=== PATIENT | male | born 1950 | race Caucasian/White ===

== ENCOUNTER → 2018-07-07 11:53 | Outpatient (CLI) | payer OTHER, SELFPAY ==
[2018-07-07 11:15] VITALS: BMI 29.1
--- NOTE | 2018-07-07 12:05 | RAD_ITS ---
STUDY: X-RAY CHEST REASON FOR EXAM: Male, 68 years old. Pre-op. TECHNIQUE: PA and lateral views of the chest. COMPARISON: None. FINDINGS: The lungs are clear and expanded. There is no demonstrated pleural abnormality. Normal size heart. Normal mediastinum and bindu. Normal visualized pulmonary arteries. There is minor atherosclerotic calcification of the aortic arch with tortuosity of the distal descending thoracic segment. There are multilevel degenerative changes of the visualized thoracic spine. Normal visualized ribs, clavicles, and shoulders. There is no demonstrated abnormality of the visualized soft tissue structures of the upper abdomen. RAD/Chest PA and Lateral IMPRESSION: No acute cardiopulmonary disease. Notable tortuosity of the distal descending thoracic aorta. Electronically Signed: Renard Bennett, at 12:54 EST , Service support ,
== END ==
PROVIDERS: Family Provider Family Medicine; PCP Family Medicine; Referring Provider Family Medicine; Visit Provider Family Medicine
DX: Z01.818 Encounter for other preprocedural examination (principal); M17.11 Unilateral primary osteoarthritis, right knee
CPT/HCPCS: 71046

== ENCOUNTER 2018-07-21 08:13 | Observation (INO) | payer SELFPAY ==
[2018-07-07 11:15] VITALS: BP 130/81; PULSE 56; RESP 16; TEMP 36.7; O2SAT 97; BMI 29.1
[2018-07-07 12:24] LABS: Absolute Lymphocyte Count 1.71 X10^3/ul (0.83-4.51); Absolute Neutrophil Count 2.3 X10^3/uL (2.0-7.7); Basophil# 0.03 X10^3/uL; Basophil% 0.6 % (0-1); Eosinophil# 0.13 X10^3/uL; Eosinophils% 2.6 % (0-5); Hematocrit 41.3 % (40-54); Hemoglobin 13.1 g/dl (13.0-16.5); Lymphocyte # 1.71 X10^3/ul (4.0); Lymphocyte % 34.8 % (19-41); Mean Corp Hgb Conc 31.7 g/gl (32-36); Mean Corpuscular Hgb 31.3 pg (27.0-32.0); Mean Corpuscular Volume 98.6 fL (80-94); Mean Platelet Vol. 10.1 fl (6.2-12.0); Monocyte# 0.75 X10^3/uL; Monocyte% 15.3 % (0-10); Neutrophil # 2.28 X10^3/uL (2.7-7.7); Neutrophil % 46.5 % (47-70); Platelet Count 263 K/mm3 (150-450); RBC Distribution Width CV 13.6 % (11.6-14.6); Red Blood Count 4.19 M/mm3 (4.6-6.2); White Blood Count 4.9 K/mm3 (4.4-11.0)
[2018-07-07 12:28] LABS: POSITIVE COUNT NO; POSITIVE DIFFERENTIAL NO; POSITIVE MORPHOLOGY NO
[2018-07-07 13:15] LABS: ALB/GLOB Ratio 1.1 RATIO (0.9-2.4); AST(SGOT) 17 U/L (15-37); Alanine Aminotransfer ALT/SGPT 28 U/L (16-61); Alkaline Phosphatase 63 U/L (45-117); Anion Gap 6 (5-15); BUN 18 mg/dL (7-18); BUN/Creat Ratio 19.6 RATIO (10-20); Calcium,Total 9.4 mg/dL (8.5-10.1); Chloride 106 mmol/L (98-107); Creatinine, Serum 0.92 mg/dL (0.70-1.30); EST Glomerular Filtration Rate 87 mL/min (>60); Est Glom Filt Rate - Afr Amer 105 mL/min (>60); Estimated Creatinine Clearance 67.42 ml/min; Globulin 3.8 g/dL (2.2-4.2); Glucose 86 mg/dL (74-106); Protein, Total 7.8 g/dL (6.4-8.2); Sodium Level 141 mmol/L (136-145)
--- NOTE | 2018-07-07 20:37 | PCM.HP.BLA ---
History and Physical DATE OF SURGERY: 07/21/2018 SCHEDULED PROCEDURE: right total knee arthroplasty HISTORY OF PRESENT ILLNESS: This is a 68-year-old male who has been having ongoing pain for approximately 1 year with his right knee. Patient states with activity the pain can reach as high as an 8/10. His pain has been sharp and sore. He has increased pain going up and down stairs, walking, and when he is on his feet for extended periods. Patient complains of grinding and catching in the right knee. He has difficult time with normal work activities. Pain is located over the medial joint line. Patient has tried conservative measures consisting of rest, heat, elevation with no relief in symptoms. Patient has tried home exercises with minimal relief. Patient has tried transition of care specialist with no relief in symptoms. Patient has tried oral nonsteroidal anti-inflammatories. Medications have not been significantly helpful. Patient has had previous surgery back in 1971 for removal of torn cartilage. Patient has medical history pertinent for hypertension. He currently denies any chest pain, shortness of breath, fevers chills, or recent infections. After failing conservative measures and discussing treatment options with Dr. Issac Ley, the patient would like to proceed with a right total knee arthroplasty. We are obtaining surgical clearance from patient's primary care physician. REVIEW OF SYSTEMS: ROS: Const: Denies change in appetite, fever and weight change. CV: Denies chest pain, heart murmur and irregular heartbeat. Resp: Denies cough, pneumonia, shortness of breath, tuberculosis and wheezing. GI: Denies constipation, diarrhea, heartburn, nausea, rectal itching, bloody stools and vomiting. : Denies incontinence. Musculo: Denies leg swelling, pain, trouble walking and weakness. Skin: Denies Raynaud's, history of shingles and tattoo. Neuro: Denies ambulatory dysfunction, dizziness, numbness/tingling and tremor. Psych: Denies anxiety, insomnia and stress. Emerson/Lymph: Denies anemia, bleeding/bruising tendency and past transfusion. Reviewed, no changes. PAST MEDICAL HISTORY: Advance Care Plan: No Advance Directives Effective Date: 06/10/2018 PMH: Medical Problems: Hard of Hearing, High Blood Pressure Accidents: Fracture - (1985) LT ARM Surgical Hx: Appendectomy, Hernia Repair Anesthesia Complications: None Assistive Devices: Dentures, Glasses, Hearing Aid Reviewed and updated. SOCIAL HISTORY: SH: Marital: .Occupation: [employer].Work Status: Currently Working.Hand Dominance: Right-handed. Personal Habits: Cigarette Use: Never Smoked Cigarettes.Smokeless Tobacco: Never Used Smokeless Tobacco.E-Cigarette Use: Never used.Alcohol: Denies use.Drug Use: Denies Use.Enjoy Exercising: Daily. Reviewed, no changes. VITALS: Ht: 66.5 Wt: 184lb Wt k.462 BMI: 29.3 BP: 117/79 Pulse: 69 Resp: 18 T: 97.5 T: 36.4C ALLERGIES: No Known Drug Allergy MEDICATIONS: Lisinopril 20 mg 1 tab PO daily, Hydrochlorothiazide 25 mg 1 tab PO daily PRE-OP EXAM: General appearance:NORMAL Other: Eyes: Conjunctivae and lids: NORMAL Pupils: ERR Ears, Nose, Mouth, and Throat: NORMAL Other: Inspection of lips, teeth and gums: NORMAL Other: Neck: Examination of neck: no masses noted. Respiratory: Assessment of respiratory effort: NORMAL Other: Auscultation of lungs: clear to auscultation no wheezes, rhonchi or rales. Cardiovascular: Auscultation of heart: regular rate and rhythm, no murmurs, gallops or rubs. Gastrointestinal: Exam of abdomen: soft, nontender, nondistended bowel sounds present. PHYSICAL EXAMINATION: Patient walks with an antalgic gait. Previous incision over the right knee well-healed without erythema or signs of infection. There is moderate effusion. Tenderness to palpation of the medial joint line. Range of motion right knee: Lacks 20 of full extension to 120 flexion with crepitus. Partially correctable varus alignment. Sensation intact to light touch. Neurovascularly intact. IMAGING STUDIES: X-rays of the right knee reveal varus alignment with medial joint space narrowing, subchondral sclerosis, osteophyte formation consistent with severe tricompartmental osteoarthritis. IMPRESSION: 1. Severe right knee osteoarthritis 2. Hypertension PLAN: Dr. Issac Ley did discuss and review with the patient all treatment options including surgical versus nonsurgical options. Patient does wish to proceed with the above-stated procedure. Potential risks, benefits, and complications of the procedure were discussed in detail including but not limited to , infection, nerve and blood vessel damage, persistent pain, numbness, tingling, paresthesias, blood clot, pulmonary embolism, and requirement for possible further surgery. The patient expressed full understanding and has no further questions for the doctor. Patient does agree to proceed with the above-stated procedure and has signed the surgery consent form. This dictation was created using voice recognition software. Phonetic and/or grammatical errors may exist.. ___ I have re-examined the patient. There are no clinical changes since date of exam. ___ See progress notes for changes. ___ Dictated on admission Date: Time: Signature:
[2018-07-21] VITALS (14 sets, daily range): BP systolic 91–145; BP diastolic 56–86; PULSE 56–80; RESP 14–18; TEMP 36.2–36.9; O2SAT 96–100; BMI 28.6
[2018-07-21] MEDS: Celecoxib 200 MG Capsule 400 MG PO (09:12)
[2018-07-21] MEDS: Acetaminophen 500 MG Tablet 1000 MG PO ×2 (09:12→20:58)
[2018-07-21] MEDS: Lactated Ringers 1,000 ML 999 ML IV ×2 (09:13→11:30)
[2018-07-21] MEDS: oxyCODONE HCl Cr 10 MG Tablet PO (09:14)
[2018-07-21] MEDS: Cefazolin 2 GM in 0.9% Normal Saline 100 ML IV (09:59)
--- NOTE | 2018-07-21 11:29 | RAD_ITS ---
STUDY: X-RAY - RIGHT KNEE REASON FOR EXAM: Male, 68 years old. Total knee replacement. TECHNIQUE: 2 view(s) of the knee. COMPARISON: None. FINDINGS: Normal visualized distal femur. Normal visualized proximal tibia and fibula. Normal proximal tibiofibular articulation. The patient is status post total knee replacement. There is good alignment. Postoperative soft tissue changes. RAD/Knee 1 or 2 Views IMPRESSION: Status post total knee replacement. Postoperative soft tissue changes. Electronically Signed: Ash Horner, at 12:39 EDT , Service support ,
--- NOTE | 2018-07-21 11:31 | PCM.OPRPT ---
Report of Operation Date of Procedure: 07/21/18 Pre-Operative Diagnosis: Right knee primary osteoarthritis Post-Operative Diagnosis: Right knee primary osteoarthritis Surgery/Procedure Performed:: Right total knee replacement Description of Surgical Findings:: Stable knee with good patella tracking fabrics and material cutter: Kely Gracia Type of Anesthesia:: Spinal Anesthesiologist: Ramiro Rodriguez Special Medications: 2 g Ancef, 1 g TXA at incision, 1 g TXA closure, 10 mg Decadron, joint cocktail (5 mg Duramorph, 30 mL of 0.5% Ropivicaine, 1000 units of epinephrine, 30 mg of Toradol) Specimen's removed: Bony cuts Estimated Blood Loss (mL): 50 Fluids Replaced: 1400 mL crystalloid Description of Procedure: Implants used: 1. [place] size 5 press-fit triathlon cruciate retaining distal femoral component 2. [place] size 6 press-fit tibial baseplate 3. [place] X3 11 mm CS polyethylene 4. [place] X3 32 mm asymmetric patella Brief history operative indications: 68-year-old m with history of Right knee osteoarthritis with radiographic findings with loss of joint space, osteophyte formation and subchondral sclerosis. Failed conservative measures as mentioned in the H&P. Discussion of total knee arthroplasty as well as risk and benefits were discussed the patient including but not limited to blood loss, DVTs, PEs, neurovascular damage, general risk of anesthesia including loss of life, and stiffness or instability were discussed with patient. Patient demonstrated understanding and was able to sign informed consent. Procedure: On the date of procedure patient's right lower extremity was marked in the preoperative area. The patient was then taken back to the operating room where the patient was placed on the table in the supine position. All bony prominences were identified a well-padded. Anesthesia assumed control of the C-spine and airway and remained controlled throughout the remainder of the procedure. A tourniquet was placed on the right upper thigh and the leg was prepped in a sterile fashion. The surgeon then scrubbed at this time .Upon reentering the room right lower extremity was draped in a standard orthopedic fashion. A timeout was then called and everyone agreed upon the side, the site, the procedure to be performed, patient's identity and antibiotics given. Esmarch bandage was used to exsanguinate the extremity and the tourniquet was placed up to 250 mmHg with the knee in flexion. A midline skin incision was made and sharp dissection was taken down through skin subcutaneous tissue and fat. The standard medial parapatellar incision was made and the patella was subluxed laterally. The standard deep MCL release was done and the fat pad was resected. Next our attention was directed to the femur. Navigation pins were placed, navigation was registered. The distal femoral cutting block was pinned into place and 10 mm of distal femur resection was completed. The distal femoral cut was verified with navigation. The knee was then placed in deep flexion in the standard [employer] sizing guide was used to place the femoral component in 4? external rotation based on the posterior condyles. A size 5 4-in-1 cutting block was selected and pinned into place. The anterior cut was then made and checked for notching. The subsequent anterior chamfer cuts, posterior condylar cuts and posterior chamfer cuts were made while ensuring the MCL and LCL were protected. Our attention was then turned to the tibia where the [employer] tibial cutting guide was used to make the appropriate tibial cut 90 degrees from the mechanical axis. Navigation was then used to verify the cut. A size 6 tibial base plate was selected. the knee was flexed to 90 degrees and the soft tissues and posterior osteophytes were removed from the joint. 40 cc of the periarticular injection was injected into the posterior medial corner of the joint. The appropriate trials were then placed on the femur and tibia. A trial polyethylene was trialed to ensure proper balancing and stability of the knee. Patella tracking, was then verified and corrected appropriately as needed. The appropriate tibial internal rotation was then marked with a bovie. Our attention was then directed to the patella. The patella was everted and a flat resection was made. The lug holes were drilled and the patella trial was placed. Patellar tracking was checked and deemed appropriate. Once we were happy lug holes were drilled for the femur and trial components were removed. Cement was mixed at this time and the tourniquet was let down the tibia was subluxed and pinned into place and the keel was punched and the canal was reamed. Final components were verified and opened, and cement was mixed in a vacuum. [place] Simplex cement was used. The wound was copiously irrigated with normal saline. When the cement was ready the press-fit components were impacted into place starting with the tibia, femur and finally the patella cemented into place. The trial poly component was placed and the knee was placed in full extension. All excess cement was removed in the process. Once the cement had cured the tracking, alignment and balance were verified and a size 11 mm polyethylene component was placed. Once the final components were placed the wound was copiously irrigated with normal saline solution and the periarticular injection was given. The wound was closed in a layer anderson fashion using #1 vicryl interrupted sutures for the arthrotomy, 2-0 interrupted Vicryl suture for the subcuticular layer and mariely for final skin closure. A sterile compressive dressing was then placed. The patient was then awakened from anesthesia, transferred to the [place] and transferred to the PACU for recovery. Post op plan DVT ppx: ASA 81mg, thigh high compression stockings Follow up: in office in 2 weeks for wound check PT: to start POD #0 at hospital, outpatient PT should be arranged. Grafts/Implants Used: Press-fit cruciate retaining total knee - Complications None - Admit VTE Documentation VTE Present on Admission: No VTE Mechan Device Prophylaxis: SCD's, Thigh High MASHA Hose VTE Pharm Prophylaxis ordered?: Yes
--- NOTE | 2018-07-21 11:34 | OP.PCM_ITS ---
Report of Operation Date of Procedure: 07/21/18 Pre-Operative Diagnosis: Right knee primary osteoarthritis Post-Operative Diagnosis: Right knee primary osteoarthritis Surgery/Procedure Performed:: Right total knee replacement Description of Surgical Findings:: Stable knee with good patella tracking waiter/waitress club: Kely Gracia Type of Anesthesia:: Spinal Anesthesiologist: Ramiro Rodriguez Special Medications: 2 g Ancef, 1 g TXA at incision, 1 g TXA closure, 10 mg Decadron, joint cocktail (5 mg Duramorph, 30 mL of 0.5% Ropivicaine, 1000 units of epinephrine, 30 mg of Toradol) Specimen's removed: Bony cuts Estimated Blood Loss (mL): 50 Fluids Replaced: 1400 mL crystalloid Description of Procedure: Implants used: 1. Miguel Ángel size 5 press-fit triathlon cruciate retaining distal femoral component 2. [place] size 6 press-fit tibial baseplate 3. [place] X3 11 mm CS polyethylene 4. Miguel Ángel X3 32 mm asymmetric patella Brief history operative indications: 68-year-old m with history of Right knee osteoarthritis with radiographic findings with loss of joint space, osteophyte formation and subchondral sclerosis. Failed conservative measures as mentioned in the H&P. Discussion of total knee arthroplasty as well as risk and benefits were discussed the patient including but not limited to blood loss, DVTs, PEs, neurovascular damage, general risk of anesthesia including loss of life, and stiffness or instability were discussed with patient. Patient demonstrated understanding and was able to sign informed consent. Procedure: On the date of procedure patient's right lower extremity was marked in the preoperative area. The patient was then taken back to the operating room where the patient was placed on the table in the supine position. All bony prominences were identified a well-padded. Anesthesia assumed control of the C-spine and airway and remained controlled throughout the remainder of the procedure. A tourniquet was placed on the right upper thigh and the leg was prepped in a sterile fashion. The surgeon then scrubbed at this time .Upon reentering the room right lower extremity was draped in a standard orthopedic fashion. A timeout was then called and everyone agreed upon the side, the site, the procedure to be performed, patient's identity and antibiotics given. Esmarch bandage was used to exsanguinate the extremity and the tourniquet was placed up to 250 mmHg with the knee in flexion. A midline skin incision was made and sharp dissection was taken down through skin subcutaneous tissue and fat. The standard medial parapatellar incision was made and the patella was subluxed laterally. The standard deep MCL release was done and the fat pad was resected. Next our attention was directed to the femur. Navigation pins were placed, navigation was registered. The distal femoral cutting block was pinned into place and 10 mm of distal femur resection was completed. The distal femoral cut was verified with navigation. The knee was then placed in deep flexion in the standard [employer] sizing guide was used to place the femoral component in 4? external rotation based on the posterior condyles. A size 5 4-in-1 cutting block was selected and pinned into place. The anterior cut was then made and checked for notching. The subsequent anterior chamfer cuts, posterior condylar cuts and posterior chamfer cuts were made while ensuring the MCL and LCL were protected. Our attention was then turned to the tibia where the [employer] tibial cutting guide was used to make the appropriate tibial cut 90 degrees from the mechanical axis. Navigation was then used to verify the cut. A size 6 tibial base plate was selected. the knee was flexed to 90 degrees and the soft tissues and posterior osteophytes were removed from the joint. 40 cc of the periarticular injection was injected into the posterior medial corner of the joint. The appropriate trials were then placed on the femur and tibia. A trial polyethylene was trialed to ensure proper balancing and stability of the knee. Patella tracking, was then verified and corrected appropriately as needed. The appropriate tibial internal rotation was then marked with a bovie. Our attention was then directed to the patella. The patella was everted and a flat resection was made. The lug holes were drilled and the patella trial was placed. Patellar tracking was checked and deemed appropriate. Once we were happy lug holes were drilled for the femur and trial components were removed. Cement was mixed at this time and the tourniquet was let down the tibia was subluxed and pinned into place and the keel was punched and the canal was reamed. Final components were verified and opened, and cement was mixed in a vacuum. [place] Simplex cement was used. The wound was copiously irrigated with normal saline. When the cement was ready the press-fit components were impacted into place starting with the tibia, femur and finally the patella cemented into place. The trial poly component was placed and the knee was placed in full extension. All excess cement was removed in the process. Once the cement had cured the tracking, alignment and balance were verified and a size 11 mm polyethylene component was placed. Once the final components were placed the wound was copiously irrigated with normal saline solution and the periarticular injection was given. The wound was closed in a layer anderson fashion using #1 vicryl interrupted sutures for the arthrotomy, 2-0 interrupted Vicryl suture for the subcuticular layer and mariely for final skin closure. A sterile compressive dressing was then placed. The patient was then awakened from anesthesia, transferred to the [place] and transferred to the PACU for recovery. Post op plan DVT ppx: ASA 81mg, thigh high compression stockings Follow up: in office in 2 weeks for wound check PT: to start POD #0 at hospital, outpatient PT should be arranged. Grafts/Implants Used: Press-fit cruciate retaining total knee - Complications None - Admit VTE Documentation VTE Present on Admission: No VTE Mechan Device Prophylaxis: SCD's, Thigh High MASHA Hose VTE Pharm Prophylaxis ordered?: Yes
[2018-07-21] MEDS: Scopolamine 1mg/72hr Patch 1 PATCH TD (11:59)
--- NOTE | 2018-07-21 16:56 | PCM.PN.HOSP ---
Subjective: There is a 68-year-old pleasant gentleman with no significant past medical history except hypertension on medication was admitted after elective right TKR for advanced right knee degenerative joint disease. Patient rate pain in the right knee has 2 x 10. Right knee on ice pack. Denies chest pain, shortness of breath, cough or flulike symptoms. No abdominal pain. Patient has not urinated after surgery. Preop EKG on 07/18/2018 is normal sinus rhythm with prolonged QTC. QTC 532 ms. Past medical history Hypertension Patient denies chronic heart disease including DE/CHF or arrhythmia. No COPD/emphysema or smoking history or other chronic lung disease. Vitals/I&O's: Vital Signs Temp Pulse Resp BP Pulse Ox 97.4 F L 64 18 145/84 H 96 07/21/18 16:18 07/21/18 16:18 07/21/18 16:18 07/21/18 16:18 07/21/18 16:18 Oxygen Delivery Method Room Air Weight: 180 lb Body Mass Index (BMI) 28.6 Intake and Output for Last 24 Hours 07/19/18 07/20/18 07/21/18 23:59 23:59 23:59 Intake Total 2300 / 2300 Balance 2300 / 2300 General: Alert, Oriented x3, Cooperative HEENT: Atraumatic, PERRLA, EOMI, Normocephalic Oral: Dry Mucosa Neck: Supple, No JVD, Negative Carotid Bruits Lungs: Clear to auscultation, Normal air movement, No rhonchi, No wheeze, No rales Cardiovascular: Regular rate, Regular Rhythm, Normal S1, Normal S2, No murmurs Abdomen: Bowel Sounds Present, Soft, Non Tender, Non-Distended Extremities: Capillary Refill Less than 3 Seconds, Edema - Right knee TKR postop. Under ice pack. Knee stocking present. Skin: No rashes, No breakdown Musculoskeletal: Arthritic Changes, Tenderness - Mild expected postop tenderness in the right knee Lymphatic: No Cervical, Supraclavicular, or Inguinal Adenopathy Neurological: Cranial nerves II-XII grossly intact, Deep Tendon Reflexes 2+/4 and Symmetrical, Neuro grossly intact Psych/Mental Status: Normal Affect, Appropriate Current Medications Acetaminophen (Tylenol) 1,000 mg PO Q8 [facility] Aspirin (Aspirin, Baby) 81 mg PO BIDCM [facility] Famotidine (Pepcid) 20 mg PO DAILY [facility] Hydrochlorothiazide (Hctz) 25 mg PO DAILY [facility] Cefazolin Sodium () 1 gm in 50 mls @ 150 mls/hr IV Q8H [facility] Stop: 07/22/18 02:19 Lactated Ringer's () 1,000 mls @ 125 mls/hr IV .Q8H [facility] Last Admin: 07/21/18 16:08 Dose: Not Given Ketorolac Tromethamine (Toradol) 15 mg IV Q6H PRN PRN PRN Reason: MILD-MOD PAIN (1-5/10) Lisinopril (Zestril) 20 mg PO QHS [facility] Meloxicam (Mobic) 7.5 mg PO BID [facility] Morphine Sulfate () 2 - 4 mg IV Q2H PRN PRN PRN Reason: SEVERE PAIN (6-10/10) Morphine Sulfate () 2 - 4 mg IV Q2H PRN PRN PRN Reason: SEVERE PAIN (6-10/10) [facility]it[facility]) [facility] Nutritional Formula (Lactose Free) (Ensure Clear) 120 ml PO TIDCM [facility] Ondansetron HCl (Zofran) 4 mg IV Q8H PRN PRN PRN Reason: NAUSEA Oxycodone HCl (Oxyir) 5 - 10 mg PO Q4H PRN PRN PRN Reason: MOD-SEVERE PAIN (4-10/10) Promethazine HCl (Phenergan) 12.5 mg IM Q6H PRN PRN; Protocol PRN Reason: NAUSEA/VOMITING Senna/Docusate Sodium (Senokot-S, Kiarra-Colace) 2 tablet PO BID [facility] Sodium Chloride () 5 - 15 ml IV UD PRN PRN Reason: SALINE FLUSH Medical Necessity - Tobacco Use Smoking Status: Never smoker Tobacco Use: Non-smoker Assessment/Plan There is a 68-year-old pleasant gentleman with no significant past medical history except hypertension on medication was admitted after elective right TKR for advanced right knee degenerative joint disease. Patient rate pain in the right knee has 2 x 10. Right knee on ice pack. Denies chest pain, shortness of breath, cough or flulike symptoms. No abdominal pain. Patient has not urinated after surgery. Preop EKG on 07/18/2018 is normal sinus rhythm with prolonged QTC. QTC 532 ms. 1. Severe right knee osteoarthritis status post TKR: Postop day 0. Encourage incentive spirometry. Watch for urine output for next 3 hours. If no spontaneous voiding, bladder scan and straight cath. CBC, BMP tomorrow morning. 2. Hypertension: Blood pressure is reasonably controlled 130/77, 126/76. Home medication continued. Bowel and bladder care: On senna S. Rest as mentioned above 3. DVT prophylaxis: As per orthopedic surgeon. Patient is on aspirin 81 mg twice daily. Code Visit Inpatient E&M: 07609 Init Hosp L2
--- NOTE | 2018-07-21 17:00 | PN_ITS ---
Subjective: There is a 68-year-old pleasant gentleman with no significant past medical history except hypertension on medication was admitted after elective right TKR for advanced right knee degenerative joint disease. Patient rate pain in the right knee has 2 x 10. Right knee on ice pack. Denies chest pain, shortness of breath, cough or flulike symptoms. No abdominal pain. Patient has not urinated after surgery. Preop EKG on 07/18/2018 is normal sinus rhythm with prolonged QTC. QTC 532 ms. Past medical history Hypertension Patient denies chronic heart disease including VT/CHF or arrhythmia. No COPD/emphysema or smoking history or other chronic lung disease. Vitals/I&O's: Vital Signs Temp Pulse Resp BP Pulse Ox 97.4 F L 64 18 145/84 H 96 07/21/18 16:18 07/21/18 16:18 07/21/18 16:18 07/21/18 16:18 07/21/18 16:18 Oxygen Delivery Method Room Air Weight: 180 lb Body Mass Index (BMI) 28.6 Intake and Output for Last 24 Hours 07/19/18 07/20/18 07/21/18 23:59 23:59 23:59 Intake Total 2300 / 2300 Balance 2300 / 2300 General: Alert, Oriented x3, Cooperative HEENT: Atraumatic, PERRLA, EOMI, Normocephalic Oral: Dry Mucosa Neck: Supple, No JVD, Negative Carotid Bruits Lungs: Clear to auscultation, Normal air movement, No rhonchi, No wheeze, No rales Cardiovascular: Regular rate, Regular Rhythm, Normal S1, Normal S2, No murmurs Abdomen: Bowel Sounds Present, Soft, Non Tender, Non-Distended Extremities: Capillary Refill Less than 3 Seconds, Edema - Right knee TKR postop. Under ice pack. Knee stocking present. Skin: No rashes, No breakdown Musculoskeletal: Arthritic Changes, Tenderness - Mild expected postop tenderness in the right knee Lymphatic: No Cervical, Supraclavicular, or Inguinal Adenopathy Neurological: Cranial nerves II-XII grossly intact, Deep Tendon Reflexes 2+/4 and Symmetrical, Neuro grossly intact Psych/Mental Status: Normal Affect, Appropriate Current Medications Acetaminophen (Tylenol) 1,000 mg PO Q8 KARINA Aspirin (Aspirin, Baby) 81 mg PO BIDCM KARINA Famotidine (Pepcid) 20 mg PO DAILY [facility] Hydrochlorothiazide (Hctz) 25 mg PO DAILY [facility] Cefazolin Sodium () 1 gm in 50 mls @ 150 mls/hr IV Q8H [facility] Stop: 07/22/18 02:19 Lactated Ringer's () 1,000 mls @ 125 mls/hr IV .Q8H [facility] Last Admin: 07/21/18 16:08 Dose: Not Given Ketorolac Tromethamine (Toradol) 15 mg IV Q6H PRN PRN PRN Reason: MILD-MOD PAIN (1-5/10) Lisinopril (Zestril) 20 mg PO QHS [facility] Meloxicam (Mobic) 7.5 mg PO BID [facility] Morphine Sulfate () 2 - 4 mg IV Q2H PRN PRN PRN Reason: SEVERE PAIN (6-10/10) Morphine Sulfate () 2 - 4 mg IV Q2H PRN PRN PRN Reason: SEVERE PAIN (6-10/10) [facility]) [facility] Nutritional Formula (Lactose Free) (Ensure Clear) 120 ml PO TIDCM [facility] Ondansetron HCl (Zofran) 4 mg IV Q8H PRN PRN PRN Reason: NAUSEA Oxycodone HCl (Oxyir) 5 - 10 mg PO Q4H PRN PRN PRN Reason: MOD-SEVERE PAIN (4-10/10) Promethazine HCl (Phenergan) 12.5 mg IM Q6H PRN PRN; Protocol PRN Reason: NAUSEA/VOMITING Senna/Docusate Sodium (Senokot-S, Kiarra-Colace) 2 tablet PO BID [facility] Sodium Chloride () 5 - 15 ml IV UD PRN PRN Reason: SALINE FLUSH Medical Necessity - Tobacco Use Smoking Status: Never smoker Tobacco Use: Non-smoker Assessment/Plan There is a 68-year-old pleasant gentleman with no significant past medical history except hypertension on medication was admitted after elective right TKR for advanced right knee degenerative joint disease. Patient rate pain in the right knee has 2 x 10. Right knee on ice pack. Denies chest pain, shortness of breath, cough or flulike symptoms. No abdominal pain. Patient has not urinated after surgery. Preop EKG on 07/18/2018 is normal sinus rhythm with prolonged QTC. QTC 532 ms. 1. Severe right knee osteoarthritis status post TKR: Postop day 0. Encourage incentive spirometry. Watch for urine output for next 3 hours. If no s pontaneous voiding, bladder scan and straight cath. CBC, BMP tomorrow morning. 2. Hypertension: Blood pressure is reasonably controlled 130/77, 126/76. Home medication continued. Bowel and bladder care: On senna S. Rest as mentioned above 3. DVT prophylaxis: As per orthopedic surgeon. Patient is on aspirin 81 mg twice daily. Code Visit Inpatient E&M: 18583 Init Hosp L2
[2018-07-21] MEDS: Ensure Clear 120 ML Liquid PO (17:33)
[2018-07-21] MEDS: Cefazolin 1 GM/50 ML BAG IV (17:33)
[2018-07-21] MEDS: Lactated Ringers 1,000 ML 125 ML IV (17:34)
[2018-07-21] MEDS: Meloxicam 7.5 MG Tablet PO (20:58)
[2018-07-21] MEDS: Senna/Docusate Sodium 1 Tablet 2 TABLET PO (20:58)
[2018-07-21] MEDS: Lisinopril 20 MG Tablet PO (20:58)
[2018-07-21] MEDS: Aspirin 81 MG TAB.CHEW PO (20:59)
--- NOTE | 2018-07-21 21:00 | NURSING ---
Pt voided 20cc c/o feeling full. Pt straight cath for 900cc of clear yellow urine.
[2018-07-22] MEDS: Cefazolin 1 GM/50 ML BAG IV (01:56)
[2018-07-22 02:10] VITALS: BP 94/60; PULSE 65; RESP 17; TEMP 36.7; O2SAT 95
[2018-07-22] MEDS: Acetaminophen 500 MG Tablet 1000 MG PO ×2 (05:38→14:25)
[2018-07-22 06:14] LABS: Hematocrit 34.8 % (40-54); Hemoglobin 11.4 g/dl (13.0-16.5); Mean Corp Hgb Conc 32.8 g/gl (32-36); Mean Corpuscular Hgb 31.8 pg (27.0-32.0); Mean Corpuscular Volume 97.2 fL (80-94); Mean Platelet Vol. 10.1 fl (6.2-12.0); Platelet Count 217 K/mm3 (150-450); RBC Distribution Width SD 43.9 fl (35.1-43.9); Red Blood Count 3.58 M/mm3 (4.6-6.2); White Blood Count 13.5 K/mm3 (4.4-11.0)
[2018-07-22 06:18] LABS: Anion Gap 8 (5-15); BUN 19 mg/dL (7-18); BUN/Creat Ratio 21.1 RATIO (10-20); Calcium,Total 8.6 mg/dL (8.5-10.1); Chloride 106 mmol/L (98-107); EST Glomerular Filtration Rate 89 mL/min (>60); Est Glom Filt Rate - Afr Amer 107 mL/min (>60); Estimated Creatinine Clearance 68.92 ml/min; Glucose 127 mg/dL (74-106); Potassium 3.8 mmol/L (3.5-5.1); Sodium Level 140 mmol/L (136-145)
[2018-07-22 06:20] LABS: Scan Indicated on CBC? Y/N NO
[2018-07-22 07:48] VITALS: BP 112/62; PULSE 55; RESP 16; TEMP 36.8; O2SAT 94
[2018-07-22] MEDS: Senna/Docusate Sodium 1 Tablet 2 TABLET PO (07:57)
[2018-07-22] MEDS: Famotidine 20 MG Tablet PO (07:57)
[2018-07-22] MEDS: Multivitamins,Therapeutic Tablet 1 TABLET PO (07:57)
[2018-07-22] MEDS: Aspirin 81 MG TAB.CHEW PO (07:57)
[2018-07-22] MEDS: Meloxicam 7.5 MG Tablet PO (07:58)
[2018-07-22] MEDS: hydroCHLOROthiazide 25 MG Tablet PO (07:58)
--- NOTE | 2018-07-22 09:07 | PCM.PN.ORT ---
Subjective: The patient was sitting in bedside chair upon examination. Patient denies any chest pain, shortness of breath, dizziness, lightheadedness, nausea or vomiting, or calf pain. Pain is controlled on medications. No adverse overnight events. Overall patient is doing well. He has been up walking around and states the pain is well controlled. Plan is for him to go home today. Objective: Vital signs stable and afebrile. Patient is able to plantarflex and dorsiflex actively. Sensation is intact to light touch to saphenous, sural, superficial and deep peroneal, and tibial distribution. Dressing is clean dry and intact. Negative Homans bilaterally, negative signs and symptoms of DVT. - Physical Exam General: Alert, Oriented x3, Cooperative, No apparent distress Vital Signs Temp Pulse Resp BP Pulse Ox 98.2 F 55 L 16 112/62 94 07/22/18 07:48 07/22/18 07:48 07/22/18 07:48 07/22/18 07:48 07/22/18 07:48 Oxygen Delivery Method Room Air Weight: 81.647 kg Body Mass Index (BMI) 28.6 Intake and Output for Last 24 Hours 07/20/18 07/21/18 07/22/18 23:59 23:59 23:59 Intake Total 3958 / 3958 883 / 883 Output Total 920 / 920 750 / 750 Balance 3038 / 3038 133 / 133 Laboratory Tests Past 24 Hrs 07/22/18 07/22/18 05:38 05:38 WBC 13.5 H RBC 3.58 L Hgb 11.4 L Hct 34.8 L MCV 97.2 H MCH 31.8 MCHC 32.8 RDW 13.0 RDW Differential 43.9 Plt Count 217 MPV 10.1 Sodium 140 Potassium 3.8 Chloride 106 Carbon Dioxide 26.0 Anion Gap 8 BUN 19 H Creatinine 0.90 Estim Creat Clear Calc 68.92 Est GFR (MDRD) Af Amer 107 Est GFR (MDRD) Non-Af 89 BUN/Creatinine Ratio 21.1 H Glucose 127 H Calcium 8.6 Medical Necessity - Tobacco Use Smoking Status: Never smoker Tobacco Use: Non-smoker Assessment/Plan 1. S/P right total knee arthroplasty POD #1 2. Continue Pain Medications: Tylenol and OxyIR 3. DVT Prophylaxis: Aspirin 81 mg twice daily with food for 4 weeks postoperatively 4. PT/OT: Weightbearing as tolerated 5. H & H: 11.4/34.8, asymptomatic 6. Reactive leukocytosis: Currently 13.5, afebrile. Patient did receive Decadron intraoperatively 7. Continue postoperative medical management per medicine 8. Encouraged Incentive Spirometry 9. Disposition: Orthopedically stable, plan will be for discharge home today after physical therapy. Prescriptions will be E scribed to [facility]. Patient will follow-up per postop instructions. Case management will assist in physical therapy. Patient was given physical therapy prescription at preop and patient stated he wanted to schedule his own therapy. However patient never scheduled the therapy.
--- NOTE | 2018-07-22 09:17 | PCM.DC.TKR ---
Discharge Diet: No Restrictions Discharge Activity: May Not Drive May shower in (days): 1 - Turned dressing away from water Ice area for (Minutes): 20 - every hour while awake. Weight Bearing Status: Weight bearing as tolerated Elevate: Operative Extremity Additional Activity Instructions:: Wear elastic stockings for 2 weeks after your surgery. Call your doctor if your incision/area has: Continuous Slow Oozing, Sudden Increased Bleeding, Increased Pain/ Swelling, Increased Redness, Foul Smelling Discharge Call your doctor if you observe: Fever of 101 or Higher, Coldness, Increased Pain, Numbness or Tingling, Change in Color, Calf discomfort, Uncontrolled pain Remove Dressing in (days):: 4 - Okay to remove on July 26, 2018 Additional Instructions: Follow [place] [facility] postop instructions Allergies/Adverse Reactions: Allergies No Known Allergies Allergy (Verified 07/21/18 08:36) Medications to take at Discharge Multivitamins,Therapeutic [Multivitamin] 1 tablet PO DAILY 04/17/15 Hydrochlorothiazide [Hctz] 25 mg PO DAILY 07/07/18 Lisinopril [Zestril] 20 mg PO QHS 07/07/18 Acetaminophen [Tylenol] 1,000 mg PO Q8 #90 tablet 07/22/18 Aspirin [Aspirin, Baby] 81 mg PO BIDCM #60 tab.chew 07/22/18 Famotidine [Pepcid] 20 mg PO DAILY #30 tablet 07/22/18 Meloxicam [Mobic] 7.5 mg PO BID #60 tablet 07/22/18 Oxycodone [Oxyir] 5 - 10 mg PO Q4H PRN PRN 5 Days #60 tablet 07/22/18 Senna/Docusate Sodium [Senokot-S] 2 tablet PO BID #20 tablet 07/22/18 The following prescriptions were given: Oxycodone [Oxyir] 5 - 10 mg PO Q4H PRN PRN 5 Days #60 tablet PRN Reason: Mod-Severe Pain (4-02/17) Acetaminophen [Tylenol] 1,000 mg PO Q8 #90 tablet Famotidine [Pepcid] 20 mg PO DAILY #30 tablet Aspirin [Aspirin, Baby] 81 mg PO BIDCM #60 tab.chew Meloxicam [Mobic] 7.5 mg PO BID #60 tablet Senna/Docusate Sodium [Senokot-S] 2 tablet PO BID #20 tablet Primary Care Physician: Moises Glover MD [Primary Care Provider] - Test Results: Test results from this visit will be discussed in further detail at your follow-up appointment, if applicable. Please Follow Up With: Physical therapy When: Will be scheduled by case management/social work administrator Please Follow Up With: Darek Palacios PA-C When: 08/04/18 @ 9:30 am
--- NOTE | 2018-07-22 09:20 | DCINST_ITS ---
Discharge Diet: No Restrictions Discharge Activity: May Not Drive May shower in (days): 1 - Turned dressing away from water Ice area for (Minutes): 20 - every hour while awake. Weight Bearing Status: Weight bearing as tolerated Elevate: Operative Extremity Additional Activity Instructions:: Wear elastic stockings for 2 weeks after your surgery. Call your doctor if your incision/area has: Continuous Slow Oozing, Sudden Increased Bleeding, Increased Pain/ Swelling, Increased Redness, Foul Smelling Discharge Call your doctor if you observe: Fever of 101 or Higher, Coldness, Increased Pain, Numbness or Tingling, Change in Color, Calf discomfort, Uncontrolled pain Remove Dressing in (days):: 4 - Okay to remove on July 26, 2018 Additional Instructions: Follow [place] [facility] postop instructions Allergies/Adverse Reactions: Allergies No Known Allergies Allergy (Verified 07/21/18 08:36) Medications to take at Discharge Multivitamins,Therapeutic [Multivitamin] 1 tablet PO DAILY 04/17/15 Hydrochlorothiazide [Hctz] 25 mg PO DAILY 07/07/18 Lisinopril [Zestril] 20 mg PO QHS 07/07/18 Acetaminophen [Tylenol] 1,000 mg PO Q8 #90 tablet 07/22/18 Aspirin [Aspirin, Baby] 81 mg PO BIDCM #60 tab.chew 07/22/18 Famotidine [Pepcid] 20 mg PO DAILY #30 tablet 07/22/18 Meloxicam [Mobic] 7.5 mg PO BID #60 tablet 07/22/18 Oxycodone [Oxyir] 5 - 10 mg PO Q4H PRN PRN 5 Days #60 tablet 07/22/18 Senna/Docusate Sodium [Senokot-S] 2 tablet PO BID #20 tablet 07/22/18 The following prescriptions were given: Oxycodone [Oxyir] 5 - 10 mg PO Q4H PRN PRN 5 Days #60 tablet PRN Reason: Mod-Severe Pain (4-02/17) Acetaminophen [Tylenol] 1,000 mg PO Q8 #90 tablet Famotidine [Pepcid] 20 mg PO DAILY #30 tablet Aspirin [Aspirin, Baby] 81 mg PO BIDCM #60 tab.chew Meloxicam [Mobic] 7.5 mg PO BID #60 tablet Senna/Docusate Sodium [Senokot-S] 2 tablet PO BID #20 tablet Primary Care Physician: Moises Glover MD [Primary Care Provider] - Test Results: Test results from this visit will be discussed in further detail at your follow- up appointment, if applicable. Please Follow Up With: Physical therapy When: Will be scheduled by case management/social media marketing manager Please Follow Up With: Darek Palacios PA-C When: 08/04/18 @ 9:30 am
--- NOTE | 2018-07-22 10:30 | CASEMGMT ---
RN EBONY Face to Face with patient for initial transition planning/care coordination assessment. RN CM introduced self and role at [facility]. Patient sitting in chair, alert and oriented. Patient willing to participate in assessment and is able to answer all questions appropriately. Care providers, pharmacy, and demographics verified. Patient wishes to discharge home with home therapy and is agreeable to [facility]. RN CM sent referral to [facility] and they are able to accept and see the patient in his home. Patient states he has no further needs or concerns at this time. CM to follow for discharge planning needs that may arise. PCP: Adalberto Specialists: jose armando Ley LNOK: , son Living Arrangements: Patient lives in 1 story home with 2 steps to enter the home. Patient was independent at home. 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 Home therapy setup with [facility]. Disposition Plan: Patient to discharge home with home therapy, family support, and followo-up plans in place. Kirsty BARRY, RN, CM
[2018-07-22 14:27] VITALS: BP 132/69; PULSE 77; RESP 16; TEMP 36.6; O2SAT 97
== END 2018-07-22 15:15 | disposition home or self-care (01) ==
LOC: ACINP 10:10 → MS3 07-22 06:29 → ACINP 07-22 08:38
PROVIDERS: Admitting Provider Specialist; Family Provider Family Medicine; PCP Family Medicine; Referring Provider Specialist; Visit Provider Internal Medicine
PROC: (CPT 27447; principal; 2018-07-21 10:00)
DX: M17.11 Unilateral primary osteoarthritis, right knee (principal); I10 Essential (primary) hypertension; Z79.899 Other long term (current) drug therapy; H91.90 Unspecified hearing loss, unspecified ear
CPT/HCPCS: 01400; 27447; 64447; 36415; 73560; 80048; 80053; 85025; 85027; 87081; 96361; 96365; 96366; 97110; 97116; 97162; 97165; 97530; 99218; 99251; C1776; J7120; G0378; G0379; G0463

== ENCOUNTER 2019-07-26 05:22 | Day surgery (SDC) | payer SELFPAY, OTHER ==
[2018-07-21 14:28] VITALS: BMI 28.6
[2019-07-26] VITALS (9 sets, daily range): BP systolic 79–115; BP diastolic 51–82; PULSE 52–77; RESP 14–16; TEMP 35.8–36.9; O2SAT 94–100; BMI 27.6
[2019-07-26] MEDS: Lactated Ringers 1,000 ML 100 ML IV (06:05)
--- NOTE | 2019-07-26 06:17 | PCM.HP.STD ---
Problem List (1) Personal history of colonic polyps Status: Acute (2) Family history of colon cancer in father Status: Acute (3) Family history of malignant neoplasm of colon in first degree relative diagnosed when younger than 60 years of age Status: Acute History of Present Illness Date of Admission: 07/26/19 The patient is a 69 year old M who presents with a family history of colon cancer in his father who of it in his sister. His last colonoscopy was 5 years ago. He denies bright red blood per rectum or melena. No abdominal pain. No change in bowel habits. No change of weight. He otherwise feels well. Past Medical History Allergies No Known Allergies Allergy (Verified 07/26/19 05:51) Home Medications: Ambulatory Orders Medication Instructions Recorded Multivitamins,Therapeutic 1 tablet PO DAILY 04/17/15 [Multivitamin] Hydrochlorothiazide [Hctz] 25 mg PO DAILY 07/07/18 Lisinopril [Zestril] 20 mg PO QHS 07/07/18 Smoking Status: Never smoker Tobacco Use: Non-smoker Review of Systems Constitutional: Denies: Anorexia, Chills, Fever Cardiovascular: Denies: Chest Pain Respiratory: Denies: Cough Gastrointestinal: Denies: Abdominal Pain, Melena Endocrine: Denies: Change in Body Habitus VTE Information - Inpt Only VTE Present on Admission: No Patient Problems: Active and Suspected Problems Personal history of colonic polyps (Acute) Family history of colon cancer in father (Acute) Family history of malignant neoplasm of colon in first degree relative diagnosed when younger than 60 years of age (Acute) - Physical Exam Vitals/I&O's: Vital Signs Temp Pulse Resp BP Pulse Ox 98.4 F 77 16 115/82 H 100 07/26/19 05:52 07/26/19 05:52 07/26/19 05:52 07/26/19 05:52 07/26/19 05:52 Oxygen Delivery Method Room Air Weight: 176 lb 12.972 oz Body Mass Index (BMI) 27.6 General: Alert, Oriented x3, Cooperative, No apparent distress Oral: Moist Mucosa Lungs: Clear to auscultation, Normal air movement Cardiovascular: Regular rate, Regular Rhythm Abdomen: Bowel Sounds Present, Soft, Non Tender Extremities: No Calf Tenderness Psych/Mental Status: Normal Affect Current Medications Lactated Ringer's () 1,000 mls @ 100 mls/hr IV .Q10H [facility] Last Admin: 07/26/19 06:05 Dose: 100 mls/hr Documented by: Assessment/Plan All Active Problems Personal history of colonic polyps (Acute) Family history of colon cancer in father (Acute) Family history of malignant neoplasm of colon in first degree relative diagnosed when younger than 60 years of age (Acute) 69-year-old gentleman. Strong family history with a father and sister both who had colon cancer. He presents via open access today. No symptoms. He otherwise enjoys good health. We will proceed with a surveillance colonoscopy with possible biopsy or polypectomy is indicated. He has had an opportunity to ask and have questions answered. Most recent colonoscopy was 5 years prior. Prashanth Mitchell M.D., F.A.C.S.
--- NOTE | 2019-07-26 06:56 | OP.CCLET_ITS ---
07/26/2019 Moises Glover Re : Colonoscopy procedure for Junior Glover This procedure was performed on Friday, July 26, 2019. My impressions and recommendations are as follows: Impressions : - Non-thrombosed internal hemorrhoids, internal hemorrhoids that prolapse with straining, but spontaneously regress to the resting position (Grade II) and enlarged prostate found on digital rectal exam. - Diverticulosis in the sigmoid colon and in the descending colon. - A tattoo was seen in the mid transverse colon. A post-polypectomy scar was found at the tattoo site. There was no evidence of residual polyp tissue. - The examination was otherwise normal. - No specimens collected. Recommendations : - Discharge patient to home. - Resume previous diet. - Continue present medications. - Repeat colonoscopy in 5 years for surveillance. My findings are described in the full procedure note, which is enclosed. If I can be of further assistance, please feel free to contact me at Doctor phone number(s): Work: . Sincerely, Prashanth Mitchell MD 07/26/2019 6:55:40 AM This report has been signed electronically.
--- NOTE | 2019-07-26 06:56 | OP.COLON_ITS ---
Patient Name: Junior Rosa Procedure Date: 07/26/2019 6:04 AM Date of : 1950 Age: 69 Procedure: Colonoscopy Indications: High risk colon cancer surveillance: Personal history of colonic polyps Providers: Prashanth Mitchell MD Referring MD: Moises Glover Medicines: Midazolam 3.5 mg IV, Meperidine 100 mg IV Patient Profile: Last Colonoscopy: 5 years ago. Complications: No immediate complications. Procedure: Pre-Anesthesia Assessment: - Prior to the procedure, a History and Physical was performed, and patient medications and allergies were reviewed. The patient's tolerance of previous anesthesia was also reviewed. The risks and benefits of the procedure and the sedation options and risks were discussed with the patient. All questions were answered, and informed consent was obtained. Prior Anticoagulants: The patient has taken no previous anticoagulant or antiplatelet agents. ASA Grade Assessment: II - A patient with mild systemic disease. After reviewing the risks and benefits, the patient was deemed in satisfactory condition to undergo the procedure. After I obtained informed consent, the scope was passed under direct vision. Throughout the procedure, the patient's blood pressure, pulse, and oxygen saturations were monitored continuously. The Colonoscope was introduced through the anus and advanced to the cecum, identified by appendiceal orifice and ileocecal valve. The colonoscopy was performed without difficulty. The patient tolerated the procedure well. The quality of the bowel preparation was good. The ileocecal valve was photographed. Moderate Sedation: Moderate (conscious) sedation was personally administered by the endoscopist. The following parameters were monitored: oxygen saturation, heart rate, blood pressure, and response to care. Total physician intraservice time was 15 minutes. Scope In: 6:38:16 AM Scope Withdrawal Time 0 hours 6 minutes 12 seconds Scope Out: 6:49:29 AM Total Procedure Duration Time 0 hours 11 minutes 13 seconds Findings: The digital rectal exam findings include non-thrombosed internal hemorrhoids, internal hemorrhoids that prolapse with straining, but spontaneously regress to the resting position (Grade II) and enlarged prostate. Multiple diverticula were found in the sigmoid colon and descending colon. A tattoo was seen in the mid transverse colon. A post-polypectomy scar was found at the tattoo site. There was no evidence of residual polyp tissue. The exam was otherwise without abnormality. Impression: - Non-thrombosed internal hemorrhoids, internal hemorrhoids that prolapse with straining, but spontaneously regress to the resting position (Grade II) and enlarged prostate found on digital rectal exam. - Diverticulosis in the sigmoid colon and in the descending colon. - A tattoo was seen in the mid transverse colon. A post-polypectomy scar was found at the tattoo site. There was no evidence of residual polyp tissue. - The examination was otherwise normal. - No specimens collected. Recommendation: - Discharge patient to home. - Resume previous diet. - Continue present medications. - Repeat colonoscopy in 5 years for surveillance. Procedure Code(s): --- Professional --- G0105, Colorectal cancer screening; colonoscopy on individual at high risk 14413, 59, Moderate sedation services provided by the same physician or other qualified health care giver performing the diagnostic or therapeutic service that the sedation supports, requiring the presence of an independent trained observer to assist in the monitoring of the patient's level of consciousness and physiological status; initial 15 minutes of intraservice time, patient age 5 years or older Diagnosis Code(s): --- Professional --- Z86.010, Personal history of colonic polyps K64.1, Second degree hemorrhoids N40.0, Benign prostatic hyperplasia without lower urinary tract symptoms K57.30, Diverticulosis of large intestine without perforation or abscess without bleeding CPT copyright 2017 [employer]. All rights reserved. The codes documented in this report are preliminary and upon rod tape operator review may be revised to meet current compliance requirements. Prashanth Mitchell MD 07/26/2019 6:55:40 AM This report has been signed electronically. Number of Addenda: 0 Note Initiated On: 07/26/2019 6:04 AM
== END 2019-07-26 08:23 | disposition home or self-care (01) ==
LOC: EN 05:24 → AC 05:25
PROVIDERS: Family Provider Family Medicine; PCP Family Medicine; Referring Provider Family Medicine; Visit Provider Surgery
PROC: 0DJD8ZZ Inspection of Lower Intestinal Tract, Via Natural or Artificial Opening Endoscopic (ICD-10-PCS; CPT 45378; principal; 2019-07-26 06:25)
DX: Z86.010 Personal history of colon polyps (principal); Z80.0 Family history of malignant neoplasm of digestive organs; K64.1 Second degree hemorrhoids; K57.30 Diverticulosis of large intestine without perforation or abscess without bleeding; N40.0 Benign prostatic hyperplasia without lower urinary tract symptoms
CPT/HCPCS: 45378; 99152; 99153; J7120

== ENCOUNTER 2020-12-18 08:56 | Observation (INO) | payer OTHER, SELFPAY ==
[2019-07-26 05:52] VITALS: BMI 27.6
[2020-12-18] VITALS (10 sets, daily range): BP systolic 114–168; BP diastolic 67–94; PULSE 47–68; RESP 15–18; TEMP 36.2–37.1; O2SAT 94–99; BMI 28.2
--- NOTE | 2020-12-18 09:15 | US_ITS ---
STUDY: ABDOMINAL ULTRASOUND - RIGHT UPPER QUADRANT REASON FOR VISIT: Male, 70 years old . Right upper quadrant pain. TECHNIQUE: Ultrasound evaluation of the right upper quadrant was performed with real-time and static lewis-scale imaging. TECHNICAL QUALITY: Adequate. COMPARISON: None. FINDINGS: Liver: The liver measures 17.2 cm. There is increased echogenicity consistent with fatty infiltration. The bile ducts are within normal limits. There is hepatic color flow. The direction of portal flow is hepatopetal. There is no demonstrated mass lesion. Gallbladder: Normal distended gallbladder. The gallbladder wall measures 2.9 mm. There is a positive sonographic Caro''s sign. There is a trace of pericholecystic fluid. There is a solitary echogenic gallstone within the gallbladder. This measures 1.1 cm x 1.8 cm x 0.9 cm. Sludge is seen in the gallbladder lumen. Common Bile Duct (C.B.D.): The common bile duct measures 4.2 mm. Pancreas: There is nonvisualization of the pancreas due to overlying bowel gas. Right Kidney: Normal size of the right kidney. The right kidney measures 11.1 cm x 4.9 cm x 4.9 cm. Normal renal cortex. The right cortex measures 1.6 cm. There is no demonstrated renal mass or cyst. There is no right hydronephrosis. US/Gallbladder IMPRESSION: Fatty infiltration of the liver. Solitary gallstone and sludge within the gallbladder lumen. Positive sonographic Caro''s sign. Trace amount of pericholecystic fluid. Electronically Signed: Ash Horner MD at 10:20 EDT , Service support ,
--- NOTE | 2020-12-18 09:16 | EDS_ITS ---
HPI HPI - GI History of Present Illness Chief Complaint: Abd Pain Narrative Narrative: He states the pain started about 7 PM last night.70-year-old male with history of hypertension presenting with right upper quadrant pain. He states he may have eaten dinner about 1 to 2 hours prior to this and states he had a cheeseburger soup. Patient states the pain has been fairly constant but waxing and waning in severity overnight. Patient states that the pain wraps around the right flank to the back. This morning he vomited x1. He has not eaten breakfast today. Denies fever or chills. He does not have any diarrhea or constipation. No black or bloody stools. No hematemesis or coffee-ground emesis. Patient has previous hernia repair done by Dr. Mitchell as well as appendectomy as a child. [facility] Medical History (Updated 12/18/20 @ 12:05 by Itzel HOBBS PA-C) Acute cholecystitis Hypertension Home Medications multivitamin with folic acid [Thera] 1 tab PO DAILY 04/17/15 [History Last Taken Unknown] hydrochlorothiazide 25 mg PO DAILY 07/07/18 [History Last Taken 07/26/19] lisinopril [Zestril] 20 mg PO QHS 07/07/18 [History Last Taken Unknown] Allergy/AdvReac Type Severity Reaction Status Date / Time No Known Allergies Allergy Verified 12/18/20 12:03 Surgical History History of appendectomy Social History Smoking Status: Never smoker ROS ROS ED Constitutional Constitutional ED: Denies chills, fever(s) or sweats ENT ENT ED: Denies rhinorrhea or sore throat Cardiovascular Cardiovascular: Denies chest pain or palpitations Respiratory/Chest Respiratory/Chest: Denies cough or dyspnea Gastrointestinal Gastrointestinal: Reports abdominal pain, nausea and vomiting; Denies constipation or diarrhea Genitourinary Genitourinary ED: Denies dysuria or hematuria Musculoskeletal Musculoskeletal: Denies arthralgias or myalgias Integumentary Denies Abrasions or rash Neurologic Neurologic: Denies headache(s) or paresthesias EXAM Physical Exam Const Vital Signs: 12/18/20 08:57 12/18/20 11:11 Temperature 98.0 F Temperature Source Temporal Pulse Rate 59 L 68 Respiratory Rate 18 15 Blood Pressure 168/94 H 124/77 H Blood Pressure Mean 118 92 Pulse Ox 99 98 Oxygen Delivery Method Room Air Room Air Positive well nourished General Appearance ED: NAD; Negative for pallor HEENT Reports moist mucous membranes normocephalic and atraumatic Eyes PERRL and EOMs intact bilaterally General Eye ED: Negative for pale conjunctiva or scleral icterus Resp normal respiratory effort and clear to auscultation bilaterally Cardio regular rate and regular rhythm GI Palpation: tender Caro's sign Neuro Sensorium / Orientation: alert and oriented to person Psych mental status grossly normal and thought process normal Skin General Skin Exam: Negative for jaundice or pallor Lesions: no lesions Rashes: no rashes MDM MDM MDM Narrative Medical decision making narrative: Patient presenting with right upper quadrant pain and a positive Caro sign. His CBC and CMP are unremarkable. Lipase is negative. Urinalysis is negative for infection. Right upper quadrant ultrasound shows 1 solitary stone with sludge in the lumen of the gallbladder. There is a small amount of pericholecystic fluid. Patient initially given morphine which did not change his pain level. He was then given Dilaudid. Given the continued pain since 7 PM last evening I did speak with Dr. Martinez who did send her PA down to examine the patient. While examining the patient he did request Dr. Mitchell. The PA did speak with him and he was amenable to doing surgery today at around 4:15 PM. It was requested that the patient have a preoperative EKG and chest x-ray. EKG on my interpretation shows a sinus bradycardia at 49 bpm, OK interval 2 8 ms, QRS duration 88 ms, QTC 411 seconds. Chest x-ray on my interpretation shows no acute cardiopulmonary process however there are scattered pulmonary nodules. The radiologist does agree. Impression: 1. Acute cholecystitis 2. Pulmonary nodules Lab Data Attestation: I reviewed the patient's lab results. Labs: Laboratory Results - last 24 hr 12/18/20 12/18/20 12/18/20 09:07 09:07 09:29 WBC 9.2 RBC 4.21 L Hgb 13.5 Hct 41.1 MCV 97.6 H MCH 32.1 H MCHC 32.8 RDW Std Deviation 46.9 H RDW Coeff of Narda 13.2 Plt Count 247 MPV 9.8 Immature Gran % (Auto) 0.500 Neut % (Auto) 72.6 H Lymph % (Auto) 18.9 L [place] % (Auto) 7.5 Eos % (Auto) 0.2 Baso % (Auto) 0.3 Absolute Neuts (auto) 6.6 Absolute Lymphs (auto) 1.73 Nucleated RBC % 0 Sodium 136 Potassium 3.7 Chloride 102 Carbon Dioxide 29.0 Anion Gap 5 BUN 14 Creatinine 0.81 Estim Creat Clear Calc 77.07 Est GFR (MDRD) Af Amer 120 Est GFR (MDRD) Non-Af 99 BUN/Creatinine Ratio 17.2 Glucose 124 H Calcium 9.5 Total Bilirubin 0.90 Direct Bilirubin 0.21 AST 20 ALT 29 Alkaline Phosphatase 58 Total Protein 7.7 Albumin 4.0 Globulin 3.7 Lipase 75 Urine Color Yellow Urine Clarity Clear Urine pH 6.0 Ur Specific [place] 1.020 Urine Protein 30 H Urine Glucose (UA) Normal Urine Ketones Negative Urine Occult Blood 10 H Urine Nitrite Negative Urine Bilirubin Negative Urine Urobilinogen Normal Ur Leukocyte Esterase Negative Urine RBC 0-5 SEEN Urine WBC 0-5 SEEN Ur Squamous Epith Cells 0-5 SEEN Urine Bacteria RARE Urine Mucus 0 SEEN Radiography Diagnostic Testing: Radiology Impression Gallbladder Ultrasound 12/18/20 09:15 IMPRESSION: Fatty infiltration of the liver. Solitary gallstone and sludge within the gallbladder lumen. Positive sonographic Caro''s sign. Trace amount of pericholecystic fluid. Electronically Signed: Ash Horner MD at 10:20 EDT , Service support , Chest X-Ray 12/18/20 11:10 IMPRESSION: Scattered small bilateral pulmonary nodules. The largest is in the left midlung and measures 7.6 mm. These may be tiny granulomas. Electronically Signed: Ash Horner MD at 11:30 EDT , Service support , Discharge Plan Disposition Disposition: Acute Care Hospital [facility] Discharge Date/Time: 12/18/20 11:34
[2020-12-18 09:22] LABS: Absolute Lymphocyte Count 1.73 X10^3/uL (0.83-4.51); Absolute Neutrophil Count 6.6 X10^3/uL (2.0-7.7); Basophil# 0.03 X10^3/uL; Basophil% 0.3 % (0-1); Eosinophil# 0.02 X10^3/uL; Eosinophils% 0.2 % (0-5); Hematocrit 41.1 % (40-54); Hemoglobin 13.5 g/dL (13.0-16.5); Lymphocyte # 1.73 X10^3/ul (0.83-4.51); Lymphocyte % 18.9 % (19-41); Mean Corp Hgb Conc 32.8 g/dL (32-36); Mean Corpuscular Hgb 32.1 pg (27.0-32.0); Mean Corpuscular Volume 97.6 fL (80-94); Mean Platelet Vol. 9.8 fl (6.2-12.0); Monocyte# 0.69 X10^3/uL; Monocyte% 7.5 % (0-10); NRBC Flagged by Analyzer 0 % (0-5); Neutrophil # 6.63 X10^3/uL (2.7-7.7); Neutrophil % 72.6 % (47-70); Platelet Count 247 K/mm3 (150-450); RBC Distribution Width CV 13.2 % (11.6-14.6); RBC Distribution Width SD 46.9 fl (35.1-43.9); Red Blood Count 4.21 M/mm3 (4.6-6.2); White Blood Count 9.2 K/mm3 (4.4-11.0)
[2020-12-18] MEDS: Ondansetron 4 MG/2 ML Vial IV (09:31)
[2020-12-18] MEDS: 0.9% Normal Saline 1,000 ML 1000 ML IV (09:31)
[2020-12-18] MEDS: Morphine 4 MG/ML Syringe IV (09:31)
[2020-12-18 09:34] LABS: Mucous, Urine 0 SEEN /hpf (<or=2+)
[2020-12-18 09:36] LABS: AST(SGOT) 20 U/L (15-37); Alanine Aminotransfer ALT/SGPT 29 U/L (16-61); Alkaline Phosphatase 58 U/L (45-117); Anion Gap 5 (5-15); BUN 14 mg/dL (7-18); BUN/Creat Ratio 17.2 RATIO (10-20); Bilirubin, Direct 0.21 mg/dL (0.00-0.30); Calcium,Total 9.5 mg/dL (8.5-10.1); Chloride 102 mmol/L (98-107); Creatinine, Serum 0.81 mg/dL (0.70-1.30); EST Glomerular Filtration Rate 99 mL/min (>60); Est Glom Filt Rate - Afr Amer 120 mL/min (>60); Estimated Creatinine Clearance 77.07 ml/min; Globulin 3.7 g/dL (2.2-4.2); Glucose 124 mg/dL (74-106); Lipase 75 U/L (73-393); Potassium 3.7 mmol/L (3.5-5.1); Protein, Total 7.7 g/dL (6.4-8.2); Sodium Level 136 mmol/L (136-145)
[2020-12-18 09:37] LABS: Color, Urine Yellow (Yellow); Glucose, Dipstick Normal (Normal); Ketone-Dipstick Negative (Negative); Leukocyte Esterase-Dipstick Negative /ul (Negative); Nitrite-Dipstick Negative (Negative); Occult Blood-Urine 10 /ul (Negative); Protein-Dipstick 30 mg/dl (Negative); Urine Bilirubin Dipstick Negative (Negative); Urine Clarity Clear (Clear); Urine Urobilinogen Normal (Normal)
[2020-12-18 09:45] LABS: Red Blood Cells-Urine 0-5 SEEN /hpf (0-5); Squamous Epithelial Cells - UA 0-5 SEEN /hpf (0-5); White Blood Cells 0-5 SEEN /hpf (0-5)
[2020-12-18 09:46] LABS: Bacteria RARE /hpf (None Seen)
[2020-12-18] MEDS: HYDROmorphone 0.5 MG/0.5 ML SYRINGE IV (10:37)
--- NOTE | 2020-12-18 11:02 | EKG12_ITS ---
Test Reason : PRE-OP Blood Pressure : / mmHG Vent. Rate : 049 BPM Atrial Rate : 049 BPM P-R Int : 208 ms QRS Dur : 088 ms QT Int : 456 ms P-R-T Axes : 007 030 042 degrees QTc Int : 411 ms Sinus bradycardia Otherwise normal ECG Confirmed by VITALIY AMATO, KAMILAH ([id number]), editor city TEZ CAR ([id number]) on 12/21/2020 9:20:49 AM Referred By: Prashanth Mitchell Confirmed By:ABHISHEK BURKS MD
--- NOTE | 2020-12-18 11:10 | RAD_ITS ---
STUDY: X-RAY CHEST REASON FOR EXAM: Male, 70 years old. PREop TECHNIQUE: Single AP portable view of the chest. COMPARISON: Comparison is made with prior study dated 07/07/2018. FINDINGS: Scattered small bilateral pulmonary nodules. The largest measures 7.6 mm and is in the left midlung There is no demonstrated pleural abnormality. Normal size heart. Normal mediastinum and bindu. Normal visualized pulmonary arteries. There is atherosclerotic calcification of the aortic arch with tortuosity. There are diffuse degenerative changes of the visualized thoracic spine. Normal visualized ribs, clavicles, and shoulders. There is no demonstrated abnormality of the visualized soft tissue structures of the upper abdomen. RAD/Chest 1 View (Portable) IMPRESSION: Scattered small bilateral pulmonary nodules. The largest is in the left midlung and measures 7.6 mm. These may be tiny granulomas. Electronically Signed: Ash Horner MD at 11:30 EDT , Service support ,
--- NOTE | 2020-12-18 11:40 | PCM.HP.STD ---
HPI - General HPI Narrative LANRE WATSON, is a 70 M who presents with right upper quadrant abdominal pain. Patient stated he ate cheeseburger soup last night for supper. Two hours later around 7:00 pm, he started to have right upper quadrant pain which lasted throughout the night and into this morning. He noted having nausea, vomiting this morning. He states within the last 2 months he has had 3 episodes of gallbladder attacks. He has had a previous laparoscopic bilateral inguinal hernia repair with mesh and simple umbilical hernia [place] [address] Mitchell. He also notes an appendectomy 45 years ago. His most recent colonoscopy was in July [address] Mitchell. Findings included the following: Findings: The digital rectal exam findings include non-thrombosed internal hemorrhoids, internal hemorrhoids that prolapse with straining, but spontaneously regress to the resting position (Grade II) and enlarged prostate. Multiple diverticula were found in the sigmoid colon and descending colon. A tattoo was seen in the mid transverse colon. A post-polypectomy scar was found at the tattoo site. There was no evidence of residual polyp tissue. The exam was otherwise without abnormality. Patient had a RUQ u/s today demonstrating: IMPRESSION: Fatty infiltration of the liver. Solitary gallstone and sludge within the gallbladder lumen. Positive sonographic Caro''s sign. Trace amount of pericholecystic fluid. He denies previous cardiac history. He notes a history of sleep apnea which he has a machine for however does not use. He has had COVID in February. He denies previous complications or side effects from anesthesia. [facility] Medical History (Updated 12/18/20 @ 12:05 by Itzel HOBBS PA-C) Acute cholecystitis Hypertension Home Medications multivitamin with folic acid [Thera] 1 tab PO DAILY 04/17/15 [History Last Taken Unknown] hydrochlorothiazide 25 mg PO DAILY 07/07/18 [History Last Taken 07/26/19] lisinopril [Zestril] 20 mg PO QHS 07/07/18 [History Last Taken Unknown] Allergy/AdvReac Type Severity Reaction Status Date / Time No Known Allergies Allergy Verified 12/18/20 12:03 Surgical History History of appendectomy Social History Smoking Status: Never smoker ROS Constitutional Constitutional: Reports systems reviewed and no addt'l complaints, except as documented Eyes Eyes: Reports systems reviewed and no addt'l complaints, except as documented ENT HEENT: Reports systems reviewed and no addt'l complaints, except as documented Cardiovascular Cardiovascular: Reports systems reviewed and no addt'l complaints, except as documented Respiratory/Chest Respiratory/Chest: Reports systems reviewed and no addt'l complaints, except as documented Gastrointestinal Gastrointestinal: Reports systems reviewed and no addt'l complaints, except as documented Genitourinary Genitourinary: Reports systems reviewed and no addt'l complaints, except as documented Musculoskeletal Musculoskeletal: Reports systems reviewed and no addt'l complaints, except as documented Integumentary Integumentary: Reports systems reviewed and no addt'l complaints, except as documented Neurologic Neurologic: Reports systems reviewed and no addt'l complaints, except as documented Psychiatric Psychiatric: Reports systems reviewed and no addt'l complaints, except as documented Endocrine Endocrinology: Reports systems reviewed and no addt'l complaints, except as documented Hematologic/Lymphatic Hematologic/Lymphatic: Reports systems reviewed and no addt'l complaints, except as documented Allergic/Immunologic Allergic/Immunologic: Reports systems reviewed and no addt'l complaints, except as documented Vital Signs Vital Signs Vital Signs: 12/18/20 08:57 12/18/20 11:11 Temperature 98.0 F Temperature Source Temporal Pulse Rate 59 L 68 Respiratory Rate 18 15 Blood Pressure 168/94 H 124/77 H Blood Pressure Mean 118 92 Pulse Ox 99 98 Oxygen Delivery Method Room Air Room Air Weight Weight: 180 lb 1.883 oz Body Mass Index (BMI) 28.2 Physical Exam Const alert, oriented x3, no apparent distress and average body habitus HEENT normocephalic and head/scalp atraumatic Eyes PERRL and EOMs intact bilaterally Neck full ROM Lymph Lymphatic: no lymphadenopathy noted Chest inspection of chest normal Resp normal respiratory effort and clear to auscultation bilaterally Cardio regular rate and regular rhythm GI Auscultation: hypoactive bowel sounds Palpation: soft, tender RUQ and Caro's sign and guarding no CVA tenderness Back/Spine no CVA tenderness Extremity normal to inspection Skin no rashes or lesions noted Neuro oriented x3 and CN's II-XII intact bilaterally Psych mental status grossly normal Results Lab / Micro Data Result Diagrams: 12/18/20 09:07 12/18/20 09:07 Labs: Laboratory Results - last 24 hr 12/18/20 09:07: WBC 9.2, RBC 4.21 L, Hgb 13.5, Hct 41.1, MCV 97.6 H, MCH 32.1 H, MCHC 32.8, RDW Std Deviation 46.9 H, RDW Coeff of Narda 13.2, Plt Count 247, MPV 9.8, Immature Gran % (Auto) 0.500, Neut % (Auto) 72.6 H, Lymph % (Auto) 18.9 L, [place] % (Auto) 7.5, Eos % (Auto) 0.2, Baso % (Auto) 0.3, Absolute Neuts (auto) 6.6, Absolute Lymphs (auto) 1.73, Nucleated RBC % 0 12/18/20 09:07: Sodium 136, Potassium 3.7, Chloride 102, Carbon Dioxide 29.0, Anion Gap 5, BUN 14, Creatinine 0.81, Estim Creat Clear Calc 77.07, Est GFR (MDRD) Af Amer 120, Est GFR (MDRD) Non-Af 99, BUN/Creatinine Ratio 17.2, Glucose 124 H, Calcium 9.5, Total Bilirubin 0.90, Direct Bilirubin 0.21, AST 20, ALT 29, Alkaline Phosphatase 58, Total Protein 7.7, Albumin 4.0, Globulin 3.7, Lipase 75 12/18/20 09:29: Urine Color Yellow, Urine Clarity Clear, Urine pH 6.0, Ur Specific [place] 1.020, Urine Protein 30 H, Urine Glucose (UA) Normal, Urine Ketones Negative, Urine Occult Blood 10 H, Urine Nitrite Negative, Urine Bilirubin Negative, Urine Urobilinogen Normal, Ur Leukocyte Esterase Negative, Urine RBC 0-5 SEEN, Urine WBC 0-5 SEEN, Ur Squamous Epith Cells 0-5 SEEN, Urine Bacteria RARE, Urine Mucus 0 SEEN Radiology Impression Gallbladder Ultrasound 12/18/20 09:15 IMPRESSION: Fatty infiltration of the liver. Solitary gallstone and sludge within the gallbladder lumen. Positive sonographic Caro''s sign. Trace amount of pericholecystic fluid. Electronically Signed: Ash Horner MD at 10:20 EDT , Service support , Chest X-Ray 12/18/20 11:10 IMPRESSION: Scattered small bilateral pulmonary nodules. The largest is in the left midlung and measures 7.6 mm. These may be tiny granulomas. Electronically Signed: Ash Horner MD at 11:30 EDT , Service support , Assessment & Plan Assessment/Plan (1) Acute cholecystitis: PLAN: Patient and his are requesting Dr. Mitchell if he is available. I am seeing this patient in conjunction with Dr. Mitchell. Dr. Mitchell will plan to perform a laparoscopic cholecystitis with intraoperative cholangiogram. Procedure details, risks and benefits have been explained to the patient. Patient and his have had the opportunity to ask and have questions answered. Patient verbally understands and agrees with the plan. Patient will be admitted for observation following surgery. We will obtain preop EKG, CXR, COVID test. Thank you for allowing us to participate in this patient's care. Charges/Coding Visit Charges OBSV E&M: 54282 Initial observation care L2
[2020-12-18] MEDS: Lactated Ringers 1,000 ML 100 ML IV ×2 (12:22→22:49)
[2020-12-18] MEDS: Cefazolin 2 GM in 0.9% Normal Saline 100 ML IV (15:42)
--- NOTE | 2020-12-18 15:48 | PCM.DC ---
Documented by User: Dr. Prashanth Mitchell MD 12/19/20 05:49 Discharge Instructions Diet Discharge Diet: Light diet - advance as tolerated (if you have questions about your diet instructions, please talk to you doctor.) Activity Discharge Activity: May Not Drive (for 3-5 days or while taking narcotic pain medicine.) May shower in (days): 1 Lifting Restrictions: 10 pounds Dressing / Incision Call your doctor if your incision/area has: Continuous Slow Oozing, Sudden Increased Bleeding, Increased Pain/ Swelling, Increased Redness and Foul Smelling Discharge Call your doctor if you observe: Fever of 101 or Higher Suture Line Care: Avoid Pulling/Pushing and Avoid Pinching/Bending Additional Dressing/Incision Instructions:: Change or remove dressing in 4 days. Leave steri-strips in place for 1 week. Follow Up Care Please Follow Up With: Prashanth Mitchell MD When: Call [phone] to make an appointment to be seen in about 10 days. Test Results: I anticipate that you should be able to remove your Vidal catheter on Thursday morning early. Cut the sidebar lip the balloon fluid to evacuate and then remove the catheter. If you are unable to urinate then I strongly recommend contacting my office so that she can present to my office and have a catheter reinserted. We would like to try to avoid any emergency room visits. Discharge Plan Admission Admit Date/Time: 12/18/20 17:09 Primary Reason for Your Visit: Acute cholecystitis cholelithiasis Attending Provider: Prashanth Mitchell Primary Care Provider: Moises Glover Instructions Additional Instructions / Restrictions: Recommend removing Vidal catheter on Thursday12/24/20 at home. Start to take the Flomax at home at night daily until the prescription is completed. Discharge Orders/Prescriptions Prescriptions: New tamsulosin [Flomax] 0.4 mg capsule 0.4 mg PO DAILY Qty: 20 RF: 1 Continued multivitamin with folic acid [Thera] 1 TABLET tablet 1 tab PO DAILY RF: 0 lisinopril [Zestril] 20 MG tablet 20 mg PO QHS RF: 0 hydrochlorothiazide 25 MG tablet 25 mg PO DAILY RF: 0 Referrals / Follow Up: Moises Glover MD [Primary Care Provider] - Disposition Disposition (needs filled in before D/C Order can be placed): Home, Self Care Documented by User: Itzel HOBBS PA-C 12/19/20 13:22 Discharge Plan Admission Admit Date/Time: 12/18/20 17:09 Primary Reason for Your Visit: Acute cholecystitis cholelithiasis Attending Provider: Prashanth Mitchell Primary Care Provider: Moises Glover Instructions Additional Instructions / Restrictions: Recommend removing Vidal catheter on Thursday12/24/20 at home. Start to take the Flomax at home at night daily until the prescription is completed. Discharge Orders/Prescriptions Prescriptions: New tamsulosin [Flomax] 0.4 mg capsule 0.4 mg PO DAILY Qty: 20 RF: 1 Continued multivitamin with folic acid [Thera] 1 TABLET tablet 1 tab PO DAILY RF: 0 lisinopril [Zestril] 20 MG tablet 20 mg PO QHS RF: 0 hydrochlorothiazide 25 MG tablet 25 mg PO DAILY RF: 0 Referrals / Follow Up: Moises Glover MD [Primary Care Provider] - Disposition Disposition (needs filled in before D/C Order can be placed): Home, Self Care
--- NOTE | 2020-12-18 16:15 | GALL_PTH ---
PATIENT: LANRE WATSON LOC: MS3 U#:[id number] AGE/SX: 70/M ROOM: UT312 RE12/18/[address]: Dr. Prashanth Mitchell MD : [id number] BED: 1 DIS: 12/19/2020 SPEC #: [id number] RECD: 12/19/20 07:33 STATUS: LILIANA JOHNSON #: [id number] TRIXIE: 12/18/20 16:[address]: Prashanth Mitchell DEPT: SURGICAL PATHOLOGY RECD BY: Venessa Bain ENTERED: 12/19/20 11:12 SP TYPE: CHANTELL WHARTON DR: Dr. Moises Glover MD Tissues: Gallbladder, NOS Procedures: Surgery Specimen Level III HEADER OPERATION: Laparoscopic cholecystectomy with IOC PRE-OP DIAGNOSIS: Acute cholecystitis TISSUE SUBMITTED: Gallbladder MICROSCOPIC DIAGNOSIS Gallbladder, cholecystectomy: Acute and chronic ulcerated cholecystitis and cholelithiasis. SJ:casi 12/20/2020 MICROSCOPIC DESCRIPTION Slides are reviewed. GROSS DESCRIPTION Received is one container labeled with the patient's name and designated gallbladder. The specimen consists of a gallbladder measuring 8.5 x 3.6 x 2 cm. The external surface is smooth and glistening. Focally, it is granular, hemorrhagic and contains cautery artifact. The lumen of the gallbladder contains yellow-green mucoid bile and multiple black calculi ranging in size from 0.2 to 1.2 cm in greatest dimension. The mucosa is bile-stained and without any mass lesions. The gallbladder wall averages 0.2 cm in thickness and is free of mass lesions. Umbrella Cutter sections of the gallbladder and the cystic duct at margin of resection are submitted in one cassette. / AM:casi 12/19/20 TC:4 CPT: 11314
--- NOTE | 2020-12-18 16:20 | RAD_ITS ---
CLINICAL HISTORY: Male, 70 years old. Abdominal pain PROCEDURE: CHOLANGIOGRAM - intraoperative FLUOROSCOPY TIME (if supplied): (0:18) minutes/seconds TECHNIQUE: (All elements of maximal sterile barrier technique followed, including US elements as applicable) Fluoroscopy of the abdomen was utilized during an intraoperative cholangiogram and several images are submitted for interpretation. FINDINGS: No filling defects within the common bile duct to suggest common bile duct stone. There is passage of her of contrast through the ampulla into the duodenum. RAD/Cholangiogram/ O R,Initial IMPRESSION: No common bile duct stone. Electronically Signed: César Calderón MD at 16:48 EDT Tel , Service support ,
[2020-12-18] MEDS: Bupivacaine Mpf 0.5% 30 ML VIAL (16:57)
--- NOTE | 2020-12-18 17:00 | OP.PCM_ITS ---
Problems Associated Problem List Diagnoses (1) Acute cholecystitis: Report of Operation Date of Procedure: 12/18/20 Pre-Operative Diagnosis: Acute cholecystitis cholelithiasis Post-Operative Diagnosis: Same, adhesions of small bowel to the umbilical Ventralex hernia repair site Surgery/Procedure Performed:: Laparoscopic cholecystectomy with cholangiograms Description of Surgical Findings:: Timeout and informed consent was obtained. 70-year-old gentleman was taken down from place upon the table underwent general endotracheal intubation anesthesia. Ancef 2 g were given intravenously. The abdomen sterilely prepped and draped. 0.5% Marcaine was used as a local anesthetic. Skin sites were preanesthetized. Because of the patient's previous mesh repair of umbilical hernia I elected to in the right upper quadrant used a 5 mm Visiport technology to gain access. Clean access was obtained. The abdomen was insufflated with CO2 to a pressure of 10 mmHg pressure. 5 mm trochars Jackie and the camera inserted and investigation demonstrated the ventral Humza mesh at the umbilicus with small bowel adherent densely. The gallbladder appeared to be tightly and indurated and with edema. 5 mm trochars were placed in the right lateral upper quadrant and then the epigastric area. A 10 mm trocar was placed lower in the right mid abdomen. All of this was done under direct visualization. The gallbladder was aspirated free and decompressed with a trocar aspirator. It was then distracted blunt dissection was instituted at the infundibulum until clearly the cystic duct and cystic artery were identified. Critical view was obtained. A Hem-o-myrtle clip was placed on the cystic duct stump prior to transecting it cholangiogram catheter was inserted fluoroscopically controlled cholangiograms were obtained demonstrating normal ductal anatomy and free flow into the small bowel. 2 hemolock clips were placed on the cystic duct stump prior to transecting it. This cystic artery was clipped proximally and distally prior to transecting it. The gallbladder was dissected free from the liver bed using electrocautery. A significant edema plane was encountered. Hemostasis was obtained with electrocautery. To further assure hemostasis a piece of fibrillar was placed in the bed. The gallbladder was immediately transferred to a retrieval bag. There was no bile or stone spillage. The right lower abdomen 10 mm port site was slightly enlarged and the gallbladder exited. That fascia was closed with a GraNee needle in a [id number] of 0 Vicryl. The abdomen was allowed to deflate through an antiviral valve. Trochars were removed. Skin edges approximated opted for Monocryl subdermal stitches. Steri-Strips and Telfa and OpSite dressings applied. Sponge and instrument and needle counts were reported to the surgeon to be correct. Specimens gallbladder. Drains none. Blood loss minimal. The patient was taken to the recovery area in satisfactory addition without a pparent complication Surgeon: Prashanth Mitchell Type of Anesthesia: General Anesthesiologist: Thierry Mohan
[2020-12-18] MEDS: Lisinopril 20 MG Tablet PO (20:59)
[2020-12-18] MEDS: Acetaminophen 325 MG Tablet 650 MG PO (20:59)
[2020-12-18] MEDS: oxyCODONE 5 MG Tablet PO (20:59)
--- NOTE | 2020-12-19 02:00 | NURSING ---
Pt up to ambulate in room and to bathroom 2100. Was able to void 200mL in urinal. 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 States he doesn't feel like he is emptying completely. Pt bladder scanned for 573. Assisted pt to walk through halls to help stimulate voiding. States pain is minimal at this time, denies need for pain meds. Pt assisted back to room, only able to void 100mL after ambulating. Straight cath order verified by Dr. Mitchell and placed. Pt straight cathed at 0240 with 625mL clear yellow urine resulting. Will continue to monitor.
[2020-12-19 02:08] VITALS: BP 108/63; PULSE 52; RESP 15; TEMP 36.7; O2SAT 97
--- NOTE | 2020-12-19 05:45 | PN.SURG_ITS ---
Subjective Subjective Patient complains of urinary retention. He states that this is been a problem for in the past. He states that previously postoperatively he is required going home with a urinary catheter in place. He does not take any urologic medications to assist. He states now he is a feeling distended bloated throughout his abdomen. Not feeling as well as he did 3 hours prior. Objective Data Objective Data Vital Signs: Vital Signs Temp Pulse Resp BP Pulse Ox 98.1 F 52 L 15 108/63 97 12/19/20 02:08 12/19/20 02:08 12/19/20 02:08 12/19/20 02:08 12/19/20 02:08 Oxygen Flow Rate (L/min) 4 Oxygen Delivery Method Room Air Weight: 180 lb 1.883 oz Body Mass Index (BMI) 28.2 Intake & Output: Intake and Output for Last 24 Hours 12/17/20 12/18/20 12/19/20 23:59 23:59 23:59 Intake Total 2790 / 2790 Output Total 200 / 200 825 / 825 Balance 2590 / 2590 -825 / -825 Lab / Micro Data Result Diagrams: 12/18/20 09:07 12/18/20 09:07 Labs: Laboratory Results - last 24 hr 12/18/20 09:07: WBC 9.2, RBC 4.21 L, Hgb 13.5, Hct 41.1, MCV 97.6 H, MCH 32.1 H, MCHC 32.8, RDW Std Deviation 46.9 H, RDW Coeff of Narda 13.2, Plt Count 247, MPV 9.8, Immature Gran % (Auto) 0.500, Neut % (Auto) 72.6 H, Lymph % (Auto) 18.9 L, [place] % (Auto) 7.5, Eos % (Auto) 0.2, Baso % (Auto) 0.3, Absolute Neuts (auto) 6.6, Absolute Lymphs (auto) 1.73, Nucleated RBC % 0 12/18/20 09:07: Sodium 136, Potassium 3.7, Chloride 102, Carbon Dioxide 29.0, Anion Gap 5, BUN 14, Creatinine 0.81, Estim Creat Clear Calc 77.07, Est GFR (MDRD) Af Amer 120, Est GFR (MDRD) Non-Af 99, BUN/Creatinine Ratio 17.2, Glucose 124 H, Calcium 9.5, Total Bilirubin 0.90, Direct Bilirubin 0.21, AST 20, ALT 29, Alkaline Phosphatase 58, Total Protein 7.7, Albumin 4.0, Globulin 3.7, Lipase 75 12/18/20 09:29: Urine Color Yellow, Urine Clarity Clear, Urine pH 6.0, Ur Specific [place] 1.020, Urine Protein 30 H, Urine Glucose (UA) Normal, Urine Ketones Negative, Urine Occult Blood 10 H, Urine Nitrite Negative, Urine Bilirubin Negative, Urine Urobilinogen Normal, Ur Leukocyte Esterase Negative, Urine RBC 0-5 SEEN, Urine WBC 0-5 SEEN, Ur Squamous Epith Cells 0-5 SEEN, Urine Bacteria RARE, Urine Mucus 0 SEEN Micro: Microbiology 12/18/20 11:27 Mucosa - Nose SARS-CoV-2 Antigen (Rapid) - Final Radiography Diagnostic Testing: Radiology Impression Gallbladder Ultrasound 12/18/20 09:15 IMPRESSION: Fatty infiltration of the liver. Solitary gallstone and sludge within the gallbladder lumen. Positive sonographic Caro''s sign. Trace amount of pericholecystic fluid. Electronically Signed: Ash Horner MD at 10:20 EDT , Service support , Chest X-Ray 12/18/20 11:10 IMPRESSION: Scattered small bilateral pulmonary nodules. The largest is in the left midlung and measures 7.6 mm. These may be tiny granulomas. Electronically Signed: Ash Horner MD at 11:30 EDT , Service support , Cholangiogram 12/18/20 16:20 IMPRESSION: No common bile duct stone. Electronically Signed: César Calderón MD at 16:48 EDT Tel , Service support , Physical Exam GI GI Narrative: Softly distended, few intermittent bowel sounds, wounds are clean and dry, no focal tenderness Assessment & Plan Assessment/Plan (1) Acute cholecystitis: (2) Acute urinary retention: PLAN: Acute urinary retention. We will place a Vidal to gravity and check urinalysis. We will initiate Flomax therapy. I have vigorously encouraged the patient to initiate ambulation immediately. We will hold him to clear liquids and I have encouraged no carbonated beverages. Anticipate hopeful discharge later today. The patient did have intra-abdominal adhesions particularly of small bowel to the anterior abdominal wall at the umbilicus. This may be complicating his recovery and creating a degree of partial obstruction. Need to mobilize and ambulate this patient. Anticipate discharge home on Flomax therapy. Prashanth Mitchell M.D., F.A.C.S.
[2020-12-19] MEDS: 0.9% Saline Lock 10 ML Syringe IV (06:23)
[2020-12-19] MEDS: Tamsulosin HCl 0.4 MG Capsule PO (06:23)
[2020-12-19 06:27] VITALS: BP 133/74; PULSE 63; RESP 16; TEMP 36.9; O2SAT 95
[2020-12-19 07:10] LABS: Color, Urine Yellow (Yellow); Glucose, Dipstick Normal (Normal); Ketone-Dipstick Negative (Negative); Leukocyte Esterase-Dipstick 25 /ul (Negative); Nitrite-Dipstick Negative (Negative); Occult Blood-Urine 150 /ul (Negative); Protein-Dipstick Negative (Negative); Specific Gravity, Urine 1.005 (1.002-1.030); Urine Bilirubin Dipstick Negative (Negative); Urine Clarity Clear (Clear); Urine Urobilinogen Normal (Normal)
[2020-12-19] MEDS: hydroCHLOROthiazide 25 MG Tablet PO (10:19)
[2020-12-19 13:17] VITALS: BP 156/85; PULSE 91; RESP 18; TEMP 36.8; O2SAT 98
== END 2020-12-19 14:25 | disposition home or self-care (01) ==
LOC: ED 10:46 → SDC 10:53 → ACINP 10:54 → MS3 12-19 05:51
PROVIDERS: Admitting Provider Surgery; Emergency Provider Student in an Organized Health Care Education/Training Program; PCP Family Medicine; Referring Provider Surgery; Visit Provider Surgery
PROC: (CPT 47610; principal; 2020-12-18 15:55)
DX: K80.12 Calculus of gallbladder with acute and chronic cholecystitis without obstruction (principal); I10 Essential (primary) hypertension; R91.8 Other nonspecific abnormal finding of lung field; R00.1 Bradycardia, unspecified; R33.9 Retention of urine, unspecified; G47.30 Sleep apnea, unspecified; Z79.899 Other long term (current) drug therapy
CPT/HCPCS: 47563; 71045; 74300; 76000; 76705; 80048; 80076; 81001; 81002; 83690; 85025; 87426; 88304; 93005; 96361; 96374; 96375; 99218; 99282; J7030; J7120; A4216; G0378; J2405

== ENCOUNTER → 2023-02-09 | Outpatient (CLI) | payer SELFPAY, OTHER ==
--- NOTE | 2023-02-09 08:29 | CT_ITS ---
CT LEFT LOWER EXTREMITY WITH 3-D IMAGING CLINICAL INDICATION: Left knee for Alessandro. TECHNIQUE: Axial CT images of the left lower extremity was performed, including the left hip, left knee, and left ankle, without IV contrast material, as per [facility] protocol. Coronal and sagittal reformats were provided. RADIATION DOSAGE (If Supplied By Facility): CTDIvol = ( 18.76 ) mGy, DLP = ( 1377.56 ) mGycm COMPARISON: No relevant prior comparison study available FINDINGS: Bones: There is mild degenerative arthrosis of the left hip joint with tiny marginal osteophyte formation and mild joint space narrowing. There is mild to moderate tricompartment degenerative arthrosis of the left knee joint, most pronounced in the medial femorotibial compartment. There are small plantar and posterior calcaneal spurs, otherwise normal left ankle. Osseous structures are normal without evidence of fracture or dislocation. No lytic or blastic osseous masses. Soft Tissues: There is a tiny left knee joint effusion. There is mild chronic sigmoid diverticulosis without acute diverticulitis. The deep soft tissue structures are otherwise unremarkable. The superficial soft tissues are unremarkable without evidence of edema, hematoma, or foreign body. CT/Extremity Lower without Contra IMPRESSION: Mild to moderate tricompartment degenerative arthrosis of the left knee, most pronounced in the medial femorotibial compartment. Tiny left knee joint effusion. Electronically Signed: Aris Horner MD at 9:49 EDT ,
== END | disposition home or self-care (01) ==
LOC: CT 08:21
PROVIDERS: PCP Family Medicine; Visit Provider Specialist
DX: M21.162 Varus deformity, not elsewhere classified, left knee (principal)
CPT/HCPCS: 73700

== ENCOUNTER 2023-03-04 07:14 | Observation (INO) | payer SELFPAY, OTHER ==
--- NOTE | 2023-02-09 08:31 | EKG12_ITS ---
Test Reason : PRE OP Blood Pressure : / mmHG Vent. Rate : 069 BPM Atrial Rate : 069 BPM P-R Int : 198 ms QRS Dur : 080 ms QT Int : 400 ms P-R-T Axes : 034 060 064 degrees QTc Int : 428 ms Normal sinus rhythm Normal ECG Confirmed by NADER AMATO, HOUSTON ([id number]), assistant production editor VISHNU GRADY ([id number]) on 02/10/2023 2:44:35 PM Referred By: Issac Ley Confirmed By:HOUSTON DOE MD
[2023-02-09 09:10] LABS: Absolute Lymphocyte Count 2.18 X10^3/uL (0.83-4.51); Absolute Neutrophil Count 2.2 X10^3/uL (2.0-7.7); Basophil# 0.03 X10^3/uL; Basophil% 0.6 % (0-1); Eosinophil# 0.13 X10^3/uL; Eosinophils% 2.4 % (0-5); Hematocrit 43.4 % (40-54); Hemoglobin 13.7 g/dL (13.0-16.5); Lymphocyte # 2.18 X10^3/ul (0.83-4.51); Lymphocyte % 40.7 % (19-41); Mean Corp Hgb Conc 31.6 g/dL (32-36); Mean Corpuscular Hgb 31.6 pg (27.0-32.0); Mean Platelet Vol. 9.5 fl (6.2-12.0); Monocyte# 0.78 X10^3/uL; Monocyte% 14.6 % (0-10); NRBC Flagged by Analyzer 0 % (0-5); Neutrophil # 2.21 X10^3/uL (2.7-7.7); Neutrophil % 41.3 % (47-70); Platelet Count 231 K/mm3 (150-450); RBC Distribution Width CV 12.9 % (11.6-14.6); RBC Distribution Width SD 47.6 fl (35.1-43.9); Red Blood Count 4.34 M/mm3 (4.6-6.2); White Blood Count 5.4 K/mm3 (4.4-11.0)
[2023-02-09 09:29] LABS: Albumin, Serum 3.5 g/dL (3.2-5.0); Anion Gap 5 (5-15); BUN 22 mg/dL (7-18); BUN/Creat Ratio 21.4 RATIO (10-20); Calcium,Total 9.6 mg/dL (8.5-10.1); Chloride 108 mmol/L (98-107); Creatinine, Serum 1.03 mg/dL (0.70-1.30); EST Glomerular Filtration Rate 75 mL/min (>60); Est Glom Filt Rate - Afr Amer 91 mL/min (>60); Glucose 103 mg/dL (74-106); Magnesium 2.2 mg/dL (1.6-2.6); Potassium 4.4 mmol/L (3.5-5.1); Sodium Level 144 mmol/L (136-145)
--- NOTE | 2023-02-25 11:33 | HP.PCM_ITS ---
HPI - General HPI Narrative LANRE WATSON, is a 72 M who presentsHistory and Physical? Patient Name: Lanre MirzaB: 1950 From:? JAYLIN FRANCIS PA-C? DATE OF PRE-OPERATIVE EXAM: 02/23/2023 DATE OF SURGERY:? 03/03/2023 SCHEDULED PROCEDURE: ROBOTIC ASSISTED LEFT TOTAL KNEE ARTHROPLASTY? HISTORY OF PRESENT ILLNESS: Patient is a 72-year-old male with a chief complaint of left knee pain. Patient complains of pain with 1 year durationThe pain is 2 on a scale of 10, 7-8 with activity. The pain is increased with stairs, sitting, walking, standing. The patient reports start up pain. The pain is located over the medial knee. The patient states that the pain does occasionally awaken them at night. He notes clicking, catching and grinding in the left knee. Activity modification include a reduced ability to perform normal daily activities without pain. Previous treatments include Ibuprofen every other day for pain, rest, home exercises, activity modifications.?? Patient has never had previous surgery on this knee or any injections.? He has severe ouwx-rw-pibe osteoarthritis and would like to proceed with a robotic assisted left total knee arthroplasty. The patient has a history of right total knee replacement in 2019. He is doing well and happy with the right knee at this time.?? REVIEW OF SYSTEMS: ROS: Const: Denies change in appetite, fever and weight change. CV: Denies chest pain, heart murmur and irregular heartbeat. Resp: Denies cough, pneumonia, shortness of breath, tuberculosis and wheezing. GI: Denies constipation, diarrhea, heartburn, nausea, rectal itching, bloody stools and vomiting. : . (F Genital Sx) Denies incontinence. Musculo: Denies leg swelling, pain, trouble walking and weakness. Skin: Denies Raynaud's, history of shingles and tattoo. Neuro: Denies ambulatory dysfunction, dizziness, numbness/tingling and tremor. Psych: Denies anxiety, insomnia and stress. Emerson/Lymph: Denies anemia, bleeding/bruising tendency and past transfusion. Reviewed, no changes. PAST MEDICAL HISTORY: Advance Care Plan: No Advance Directives Effective Date: 06/10/2018 PMH: Medical Problems: Hard of Hearing, High Blood Pressure Accidents: Fracture - (1985) LT ARM Surgical Hx: Appendectomy, Hernia Repair Knee Replacement Rt - (07/21/2018) Dr. Ley? Anesthesia Complications: None Assistive Devices: Dentures, Glasses, Hearing Aid Reviewed, no changes. SOCIAL HISTORY: SH: Marital: .Occupation: [employer].Work Status: Currently Working.Hand Dominance: Right-handed. Personal Habits:? Cigarette Use: Never Smoked Cigarettes.Smokeless Tobacco: Never Used Smokeless Tobacco.E-Cigarette Use: Never used.Alcohol: Denies use.Drug Use: Denies Use.Enjoy Exercising: Daily. Reviewed, no changes. VITALS: Ht: 67 Wt: 186lb Wt k.370 BMI: 29.1 BP: 130/82 Pulse: 66 Resp: 20 T: 97.5 T: 36.4C Pain Level: 3 O2SatR: 96 ALLERGIES: No Known Drug Allergy? MEDICATIONS: Flomax 0.4 mg 1 daily x 7 days, Lisinopril 20 mg 1 tab PO daily, Hydrochlorothiazide 25 mg 1 tab PO daily PRE-OP EXAM:? General appearance:NORMAL? ? ? Other: Eyes: Conjunctivae and lids: NORMAL? Pupils: ERR Ears, Nose, Mouth, and Throat: NORMAL? Other: Inspection of lips, teeth and gums: NORMAL? ?Other: Neck: Examination of neck: no masses noted. Respiratory: Assessment of respiratory effort: NORMAL? ?Other: ?Auscultation of lungs: clear to auscultation no wheezes, rhonchi or rales. Cardiovascular:? Auscultation of heart: regular rate and rhythm, no murmurs, gallops or rubs. Exam of carotid arteries: NORMAL? ?Other: Gastrointestinal:? Exam of abdomen: soft, nontender, nondistended bowel sounds present. Lymphatic:? Palpation of nodes in neck:? NORMAL? ? ?Other: ? Palpation of nodes in Axillae: NORMAL? ?Other: Neurological: see below Psychiatric:? Orientation to time, place and person: NORMAL? ? ?Other: ?Mood and affect: NORMAL? ?Other: PHYSICAL EXAMINATION: Exam: Const: Appears healthy. No signs of apparent distress present. Alert and oriented x 3. Musculo: Mild antalgic gait Knees: ?Insp/Palp: Right knee: stable to varus and valgus stress. Full extension. Flexion 119 degrees. Previous incision is clean, dry and intact.? Left knee: Motion 10-105 degrees. Audible crepitus with varus and valgus stress. Partially correctable varus alignment with stable MCL and LCL. Firm end point with anterior posterior drawer.? Integumentary: Skin is warm, dry and intact. Neuro: Sensation to light touch is intact in the lower extremities deep peroneal, lower extremities dorsal cutaneous, lower extremities saphenous, lower extremities sural and lower extremities tibial nerve distribution IMAGING STUDIES: 4 views of the left knee with sunrise, lateral, and bilateral standing AP and tunnel views reviewed reveal varus alignment and medial joint space narrowing, subchondral sclerosis and osteophyte formation consistent with severe stage IV [id number] erosive osteoarthritis. IMPRESSION: 1. severe osteoarthritis left knee? 2. Hard of Hearing 3. High Blood Pressure PLAN: Patient denies history of DVT or PE, open wounds or sores over the body, no allergies to antibiotics and no current antibiotic use. No current dental issues Aspirin 81 twice a day ?4 weeks for DVT prophylaxis postoperatively At this time patient has consented to proceed with a ROBOTIC ASSISTED LEFT TOTAL KNEE ARTHROPLASTY .? Dr. Ley did discuss and review with the patient all treatment options including surgical versus nonsurgical options.? Patient does wish to proceed with the above-stated procedure.? Potential risk, benefits, and complications of the procedure were discussed in detail including but not limited to , infection, nerve and blood vessel damage, persistent pain, numbness, tingling, paresthesias, blood clot, pulmonary embolism, and requirement for possible further surgery.? The patient expressed full understanding and has no further questions for the doctor.? Patient does agree to proceed with the above-stated procedure and has signed the surgery consent form. I have reviewed the [place] Automated Rx Reporting System (OARRS) report for this patient for refill pattern and other prescriber involvement as part of the luis ropriate surveillance for the provision of acute and chronic controlled medications.? The report was requested and reviewed on the date of this entry and was considered in the prescribing process. Discussed with the patient the risks associated with the COVID-19 virus including the risk of exposure while at the hospital.? The patient was reassured local hospitals have low infection rates and taken all necessary precautions to limit patient exposure to COVID-19.? Limiting the patient's time in the hospital may decrease their exposure to COVID-19.? The patient was notified that we will need to comply with any screening or testing the hospital wishes to perform and that surgery may be delayed for any positive test results. [facility] Medical History (Updated 02/06/23 @ 08:22 by Codi Cevallos) Acute cholecystitis Gastric reflux History of stress test Hypertension Non-smoker Postoperative urinary retention Sleep apnea Wears dentures Wears glasses Wears hearing aid Home Medications multivitamin with folic acid 400 mcg tablet (Thera) 1 tab PO DAILY supplement 04/17/15 [History Last Taken Unknown] hydrochlorothiazide 25 mg tablet 25 mg PO DAILY bp 07/07/18 [History Last Taken 07/26/19] lisinopril 20 mg tablet (Zestril) 20 mg PO QHS bp 07/07/18 [History Last Taken Unknown] Allergy/AdvReac Type Severity Reaction Status Date / Time No Known Allergies Allergy Verified 02/06/23 08:04 Surgical History (Updated 02/06/23 @ 08:08 by Codi eCvallos) History of appendectomy History of hernia surgery History of total right knee replacement (TKR) Hx laparoscopic cholecystectomy Social History (System 11/26/22 @ 11:41 by Mildred Narayanan) Smoking Status: Never smoker Results Lab / Micro Data 02/09/23 08:59 02/09/23 08:59
[2023-03-04] VITALS (14 sets, daily range): BP systolic 114–132; BP diastolic 60–97; PULSE 70–82; RESP 16–18; TEMP 35.8–36.8; O2SAT 95–100; BMI 29.7
[2023-03-04] MEDS: Magnesium 1 GM over 15 mins IV (05:50)
[2023-03-04] MEDS: Lactated Ringers 1,000 ML 999 ML IV ×2 (06:10→09:11)
[2023-03-04] MEDS: Gabapentin 600 MG Tablet PO (06:11)
[2023-03-04] MEDS: Acetaminophen 500 MG Tablet 1000 MG PO ×3 (06:11→21:28)
[2023-03-04] MEDS: Celecoxib 200 MG Capsule 400 MG PO (06:11)
[2023-03-04 06:49] LABS: Bedside Glucose 117 mg/dL (74-106)
[2023-03-04] MEDS: Lactated Ringers 1,000 ML 75 ML IV (07:02)
[2023-03-04] MEDS: Cefazolin 2 GM in 0.9% Normal Saline (100mL Bag) 100 ML IV (07:22)
[2023-03-04] MEDS: dexAMETHasone 10 MG/ML Vial IV (07:25)
--- NOTE | 2023-03-04 07:30 | KNEE_PTH ---
PATIENT: LANRE WATSON LOC: MS3 U#:[id number] AGE/SX: 72/M ROOM: [facility] RE03/04/[address]: Dr. Issac Ley MD : 1950 BED: 1 DIS: 03/05/2023 SPEC #: [id number] RECD: 03/04/23 13:55 STATUS: LILIANA REQ #: [id number] TRIXIE: 03/04/23 07:[address]: Issac Ley DEPT: SURGICAL PATHOLOGY RECD BY: Yeison Cowan ENTERED: 03/04/23 13:55 SP TYPE: TOTAL KNEE OTHR DR: MD Dr. Enrique Holden MD Tissues: Knee, NOS Procedures: Decalcification bone/plaque Surgery Specimen Level IV HEADER OPERATION: ERAS, total knee replacement robotic arm assist PRE-OP DIAGNOSIS: Severe osteoarthritis left knee TISSUE SUBMITTED: Bone and soft tissue left knee MICROSCOPIC DIAGNOSIS Bone and soft tissue, left knee, total knee replacement/resection: Pieces of bone with degenerative osteoarthritic changes. Fibroadipose tissue, fibroconnective tissue and reactive synovial tissue. COLIN:casi 03/09/2023 MICROSCOPIC DESCRIPTION Slides are reviewed. GROSS DESCRIPTION Received is one container designated bone and soft tissue left knee. The specimen consists of multiple fragments of marshall-yellow bone measuring in aggregate 12.0 x 12.0 x 3.5 cm. Also present in the specimen container are multiple fragments of fibrocartilaginous tissue measuring in aggregate 5.0 x 3.5 x 1.0 cm. A number of bony fragments contain articular surfaces consistent with tibial plateau and femoral condyle and displaying prominent osteophyte formation, eburnation and bone erosion. Devil Tender sections are submitted in two cassettes as follows: 1 - soft tissue, 2 - bone after decalcification. / Kris 03/04/2023 TC:5 CPT: 72604, 48587
[2023-03-04] MEDS: TXA 1000mg in NS100 100ml (IVPB at Incision) 660 MG IV (07:35)
[2023-03-04] MEDS: TXA 1000mg in NS100 100ml (IVPB at Closure) 660 MG IV (08:13)
--- NOTE | 2023-03-04 08:22 | PCM.OPRPT ---
Report of Operation Date of Procedure: 03/04/23 Pre-Operative Diagnosis: Left knee primary osteoarthritis Post-Operative Diagnosis: Left knee primary osteoarthritis Surgery/Procedure Performed:: Left knee minimally invasive robotic assisted total knee replacement Description of Surgical Findings:: Stable knee with good patella tracking Surgeon: Issac Ley treasury analyst: Jose Palacios Type of Anesthesia: Spinal Anesthesiologist: Diego Carlson Special Medications: 2 g Ancef, 1 g TXA at incision, 1 g TXA closure, 10 mg Decadron, joint cocktail (5 mg Duramorph, 30 mL of 0.5% Ropivicaine, 1000 units of epinephrine, 30 mg of Toradol) Specimen's removed: Bony cuts Estimated Blood Loss (mL): 50 Fluids Replaced: 1100 ML CTYSTALLOID Description of Procedure: Implants used: 1. Miguel Ángel size 5 triathlon cruciate retaining distal femoral press-fit component 2. Miguel Ángel size 6 press-fit tritanium tibial baseplate 3. Slick X3 9 mm CS polyethylene 4. Slick X3 38 mm asymmetric patella Brief history operative indications: [id number] M with history of left knee osteoarthritis with radiographic findings with loss of joint space, osteophyte formation and subchondral sclerosis. Failed conservative measures as mentioned in the H&P. Discussion of total knee arthroplasty as well as risk and benefits were discussed the patient including but not limited to blood loss, DVTs, PEs, neurovascular damage, general risk of anesthesia including loss of life, and stiffness or instability were discussed with patient. Patient demonstrated understanding and was able to sign informed consent. Procedure: On the date of procedure patient's left lower extremity was marked in the preoperative area. The patient was then taken back to the operating room where the patient was placed on the table in the supine position. All bony prominences were identified a well-padded. Anesthesia assumed control of the C-spine and airway and remained controlled throughout the remainder of the procedure. A tourniquet was placed on the left upper thigh and the leg was prepped in a sterile fashion. The surgeon then scrubbed at this time .Upon reentering the room left lower extremity was draped in a standard orthopedic fashion. A timeout was then called and everyone agreed upon the side, the site, the procedure to be performed, patient's identity and antibiotics given. Esmarch bandage was used to exsanguinate the extremity and the tourniquet was placed up to 250 mmHg with the knee in flexion. A midline skin incision was made and sharp dissection was taken down through skin subcutaneous tissue and fat. The standard medial parapatellar incision was made and the patella was subluxed laterally. An Appropriate deep MCL release was done and the fat pad was resected. Our attention was then directed to the patella. The patella was everted and a flat resection was made. The knee was then flexed up in 2 femoral pins were placed inside the incision and 2 tibial pins were placed outside the incision in the medial tibia bicortically. Once this was completed the 2 checkpoints in the femur and tibia were placed. Knee was then flexed up and the bony landmarks were registered. Once this was completed knee was taken through range of motion and manually stressed allowing us to a plan for an appropriate tibial cut. The robotic arm was brought into the field sterilely and checkpoint and saw were registered. Based on the patient's deformity the tibial cut was made in 3 degrees varus. At this time the tensioner was then placed in the joint and ligament tension was checked at 90 degrees and full extension. Based on the patient's ligamentous tension appropriate adjustments were made to the operative plan and ligament releases were done. Once we were happy with our operative plan with balanced flexion and extension gaps our attention was directed to the femur. The robot was brought into the field sterilely and registered. Posterior condylar cuts, anterior chamfer cuts and anterior cuts were appropriately made for a size 5 femur. When these were completed the saws were switched out in the distal femoral and posterior chamfer cuts were made. Protecting the soft tissue throughout this time. A size 6 tibial base plate was selected. the knee was flexed to 90 degrees and the soft tissues and posterior osteophytes were removed from the joint. 40 cc of the periarticular injection was injected into the posterior medial corner of the joint. The appropriate trials were then placed on the femur and tibia. A trial polyethylene was trialed to ensure proper balancing and stability of the knee. The appropriate tibial internal rotation was then marked with a bovie. Our attention was then directed to the patella. The lug holes were drilled and the patella trial was placed. Patellar tracking was checked and deemed appropriate. Once we were happy lug holes were drilled for the femur and trial components were removed. the tibia was subluxed and pinned into place and the keel was punched and drilled appropriately. Final components were verified and opened, and cement was mixed in a vacuum. [place] Simplex cement was used. The wound was copiously irrigated with normal saline. When the cement was ready the components were impacted into place starting with the tibia, femur and finally cementing the patella. The trial poly component was placed and the knee was placed in full extension. All excess cement was removed in the process. Once the cement had cured the tracking, alignment and balance were verified and a size 9 mm CS polyethylene component was placed. Once the final components were placed a 3-minute dilute Betadine lavage was performed followed by an Irrisept lavage was performed and the wound was copiously irrigated with normal saline solution and the periarticular injection was given. The wound was closed in a layer anderson fashion using #1 vicryl interrupted sutures for the arthrotomy, 2-0 interrupted Vicryl suture for the subcuticular layer and mariely for final skin closure. A sterile compressive dressing was then placed. The patient was then awakened from anesthesia, [facility] and transferred to the PACU for recovery. Post op plan DVT ppx: ASA 81mg BID, thigh high compression stockings Follow up: in office in 2 weeks for wound check PT: to start POD #0 at hospital, outpatient PT should be arranged. My physician dental assistant medical assistant was a vital part of this case. He was important in appropriate retraction during the case, and protection of soft tissues during bony cuts. His intimate knowledge of the case and my steps aided in safe and expedient completion of the procedure as well as appropriate position of the leg during the case. He was also vital in assisting with closure under my direct supervision. Due to the complexity of this case robotic arm was used to assist in the surgery to improve accuracy and clinical outcomes. Complications No intraoperative complications Admit VTE Documentation VTE Present on Admission: No VTE Mechan Device Prophylaxis: SCD's and Thigh High MASHA Hose VTE Pharm Prophylaxis ordered?: Yes
[2023-03-04] MEDS: JPS (Morphine 10mg/ml) OPERA.SITE (08:40)
--- NOTE | 2023-03-04 09:15 | RAD_ITS ---
STUDY: X-RAY - LEFT KNEE REASON FOR EXAM: Male, 72 years old. Post op -- AP and Lateral xray of operative knee in PACU TECHNIQUE: 2 view(s) of the knee. COMPARISON: None. FINDINGS: Normal visualized distal femur. Normal visualized proximal tibia and fibula. Normal proximal tibiofibular articulation. The patient is status post total knee replacement. There is good alignment. Postoperative soft tissue changes. RAD/Knee 1 or 2 Views IMPRESSION: Status post total knee replacement. There is good alignment. Postoperative soft tissue changes. Electronically Signed: Ash Horner MD at 10:27 EDT ,
[2023-03-04] MEDS: Lactated Ringers 1,000 ML 125 ML IV (10:09)
[2023-03-04] MEDS: Aspirin 81 MG TAB.CHEW PO ×2 (11:08→21:28)
[2023-03-04] MEDS: Senna/Docusate Sodium 1 Tablet 2 TABLET PO ×2 (11:08→21:28)
[2023-03-04] MEDS: Multivitamins,Therapeutic Tablet 1 TABLET PO (11:09)
[2023-03-04] MEDS: Famotidine 20 MG Tablet PO (11:09)
[2023-03-04] MEDS: Cefazolin 1 GM/50 ML BAG IV ×2 (15:24→22:48)
[2023-03-04] MEDS: 0.9% Saline Lock 10 ML Syringe IV (16:41)
[2023-03-04] MEDS: Ondansetron 4 MG/2 ML Vial IV (16:41)
[2023-03-04] MEDS: Tamsulosin HCl 0.4 MG Capsule PO (16:41)
[2023-03-04] MEDS: Lisinopril 20 MG Tablet PO (21:29)
[2023-03-05 02:43] VITALS: BP 115/74; PULSE 60; RESP 16; TEMP 36.8; O2SAT 96
[2023-03-05] MEDS: Acetaminophen 500 MG Tablet 1000 MG PO (06:15)
[2023-03-05 06:37] VITALS: BP 122/76; PULSE 54; RESP 18; TEMP 36.7; O2SAT 97
[2023-03-05 07:02] LABS: Hematocrit 35.3 % (40-54); Hemoglobin 11.6 g/dL (13.0-16.5); Mean Corp Hgb Conc 32.9 g/dL (32-36); Mean Corpuscular Hgb 32.5 pg (27.0-32.0); Mean Corpuscular Volume 98.9 fL (80-94); Mean Platelet Vol. 10.4 fl (6.2-12.0); Platelet Count 195 K/mm3 (150-450); RBC Distribution Width CV 13.2 % (11.6-14.6); RBC Distribution Width SD 47.3 fl (35.1-43.9); Red Blood Count 3.57 M/mm3 (4.6-6.2); White Blood Count 13.9 K/mm3 (4.4-11.0)
[2023-03-05 07:23] VITALS: O2SAT 94
[2023-03-05 07:23] LABS: Anion Gap 4 (5-15); BUN 27 mg/dL (7-18); BUN/Creat Ratio 22.3 RATIO (10-20); Chloride 108 mmol/L (98-107); Creatinine, Serum 1.21 mg/dL (0.70-1.30); EST Glomerular Filtration Rate 62 mL/min (>60); Est Glom Filt Rate - Afr Amer 75 mL/min (>60); Estimated Creatinine Clearance 50.08 ml/min; Glucose 136 mg/dL (74-106); Potassium 4.2 mmol/L (3.5-5.1); Sodium Level 139 mmol/L (136-145)
[2023-03-05] MEDS: Multivitamins,Therapeutic Tablet 1 TABLET PO (07:52)
[2023-03-05] MEDS: Famotidine 20 MG Tablet PO (07:52)
[2023-03-05] MEDS: Aspirin 81 MG TAB.CHEW PO (07:52)
[2023-03-05] MEDS: Senna/Docusate Sodium 1 Tablet 2 TABLET PO (07:52)
[2023-03-05] MEDS: Ensure Surgery 237 ML LIQUID PO (07:52)
[2023-03-05 08:51] VITALS: O2SAT 97
--- NOTE | 2023-03-05 09:55 | PN.ORTHO_ITS ---
Subjective Subjective The patient was participating in physical therapy upon examination. Patient denies any chest pain, shortness of breath, dizziness, lightheadedness, nausea or vomiting, or calf pain. Pain is controlled on medications. No adverse overnight events. Patient overall is doing very well. He has tolerated therapy very well. He states he has not had a bowel movement. He has been able to urinate on his own. He was started on tamsulosin preoperatively and will continue postoperatively. Patient is wishing to try to go home today. Objective Data Objective Data Vital Signs: Vital Signs Temp Pulse Resp BP Pulse Ox O2 Del Method O2 Flow Rate 98.1 F 54 L 18 122/76 H 97 Room Air 2 03/05/23 06:37 03/05/23 06:37 03/05/23 06:37 03/05/23 06:37 03/05/23 06:37 03/05/23 09:36 03/04/23 13:58 Oxygen Flow Rate (L/min) 2 Oxygen Delivery Method Room Air Weight: 86 kg Body Mass Index (BMI) 29.7 Intake & Output: Intake and Output for Last 24 Hours 03/03/23 03/04/23 03/05/23 23:59 23:59 23:59 Intake Total 4847.8 / 4847.8 Output Total 200 / 200 Balance 4647.8 / 4647.8 Lab / Micro Data 03/05/23 06:00 03/05/23 06:00 Labs: Laboratory Results - last 24 hr 03/05/23 06:00: WBC 13.9 H, RBC 3.57 L, Hgb 11.6 L, Hct 35.3 L, MCV 98.9 H, MCH 32.5 H, MCHC 32.9, RDW Std Deviation 47.3 H, RDW Coeff of Narda 13.2, Plt Count 195, MPV 10.4, Sodium 139, Potassium 4.2, Chloride 108 H, Carbon Dioxide 27.0, Anion Gap 4 L, BUN 27 H, Creatinine 1.21, Estim Creat Clear Calc 50.08, Est GFR (MDRD) Af Amer 75, Est GFR (MDRD) Non-Af 62, BUN/Creatinine Ratio 22.3 H, Glucose 136 H, Calcium 9.0 Micro: Microbiology 02/09/23 08:59 Swab (Method) Nasal Screen MRSA/MSSA - Final Radiography Diagnostic Testing: Radiology Impression Knee X-Ray 03/04/23 09:15 IMPRESSION: Status post total knee replacement. There is good alignment. Postoperative soft tissue changes. Electronically Signed: Ash Horner MD at 10:27 EDT , Physical Exam Narrative Vital signs stable and afebrile. MASHA hose are in place bilaterally Patient is able to plantarflex and dorsiflex actively. Sensation is intact to light touch to saphenous, sural, superficial and deep peroneal, and tibial distribution. Dressing is clean dry and intact. Negative Homans bilaterally, negative signs and symptoms of DVT. Const alert, oriented x3 and no apparent distress Assessment & Plan Assessment/Plan (1) Status post total left knee replacement: PLAN: 1. S/P left total knee arthroplasty POD #1 2. Continue Pain Medications: Tylenol, meloxicam, oxycodone. Do not take any other nonsteroidal anti-inflammatories while using meloxicam/Mobic. 3. DVT Prophylaxis: Take 81 mg aspirin twice daily for 4 weeks postoperatively for DVT prophylaxis. Patient denies past history of DVT or pulmonary embolism 4. PT/OT: Weightbearing as tolerated with walker. Patient did very well with physical therapy today and is okay with patient being discharged home today. 5. Lab work has been reviewed and is currently stable. He did have reactive leukocytosis currently 13.9 and afebrile. Patient did receive Decadron intraoperatively 6. Encouraged Incentive Spirometry 7. Disposition: Patient appears to be orthopedically stable today. His only complaint is he has not had a bowel movement yet. He will maintain the stool softener and I did explain to him that it can take 1-3 days postoperatively for this to occur. If he has any further complications he is to reach out to our office or primary care physician. Patient will finish out prescription for the tamsulosin. If he has any urinary retention upon discharge he is to contact his primary care physician. He was able to urinate on his own today. He would like his prescriptions E scribed to [facility] pharmacy. He is planning on doing physical therapy at [facility] in [facility]. He is to reach out to them today. Upon discharge patient will contact her office with any concerns or questions. He will follow-up per postoperative instructions. I have reviewed the [place] Automated Rx Reporting System (OARRS) report for this patient for refill pattern and other prescriber involvement as part of the [facility] surveillance for the provision of acute and chronic controlled medications. The report was requested and reviewed on the date of this entry and was considered in the prescribing process. This dictation was created using voice recognition software. Phonetic and/or grammatical errors may exist.
--- NOTE | 2023-03-05 09:55 | CASEMGMT ---
RALF BECK Assessment: Face to Face with pt for initial transition planning/care coordination assessment. RALF BECK introduced self and role at [facility], pt voices understanding and consents to assessment. Pt is A&O x4 and answers all questions appropriately at this time. Care providers, pharmacy, and demographics verified/updated. Admitting Dx: Total Knee Replacement Robotic Arm Assist PCP: Adalberto Specialists: Pt. states none Preferred Pharmacy: [facility] Insurance:HPKGPL/ACFG Prescription Benefit: No LNOK: and son, Tim Living Will/HCPOA: Yes and Yes; son Tim Rosa is HCPOA Living Arrangements: Pt lives at home with his in a 1 story home with [facility]. I step w/out railing to enter home (states there is a basement but he does not need to go into it). prior to this admission pt. states he was ambulating stair well. Prior to this admission pt. was I in ADLs and did some IADLs, but his was helping a bit more since pt's knee pain was increasing. 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 States his is setting up the route driver for transport home. DME:crutches, walker, grab bars. Declines information on medical alert systems. States he may want to get a rased toilet seat and states he will take care of getting this fr0m his [facility]. Pt. also states his will be purchasing them an ice machine for his knee. HHC/SNF: Denies any previous SNF or HHC. Pt. states he plans to call [facility] PT once they get home to set up PT (he states it is too difficult to get a route driver all the time to go to outpatient PT). He states he has used them before and they are aware already that he had this surgery and will be needing HHC PT. Pt states no concerns with going home at time of dc. Pt states no further concerns/needs. CM to follow. Advised pt to ask CM if any further question/concerns/needs arise, voices understanding. Pt Goal: Home with family support and follow-up plans in place. Pt. states he plans to call [facility] for [facility] PT once they get home to set up PT. He states he has used them before and they are aware already that he had this surgery and will be needing HHC PT. Plan: Home with family support and follow-up plans in place. HHC through [facility] will be set up by pt.
--- NOTE | 2023-03-05 09:59 | DCINST_ITS ---
Discharge Instructions Diet Discharge Diet: No restrictions Activity Discharge Activity: May Not Drive (while taking narcotic pain medications.) May shower in (days): 1 (Please turn dressing away from water. Okay to get wet as long as dressing is intact to skin.) Ice area for (Minutes): 20 (Every 1-2 hours while awake[address] place barrier between the skin and ice pack.) Weight Bearing Status: Weight bearing as tolerated Keep extremity elevated above heart level: Operative Extremity Dressing / Incision Call your doctor if your incision/area has: Continuous Slow Oozing, Sudden Increased Bleeding, Increased Pain/ Swelling, Increased Redness and Foul Smelling Discharge Call your doctor if you observe: Fever of 101 or Higher, Coldness, Increased Pain, Numbness or Tingling, Change in Color, Shortness of breath, Chest pain, Calf discomfort and Uncontrolled pain Remove Dressing in: 4 days (Okay to remove dressing on March 09, 2023) Additional Dressing/Incision Instructions:: Follow [facility] Post-op Instructions. Once postoperative dressing has been removed only use gentle soap and water over the incision. Do not use any ointments, Neosporin, salves, alcohol pads over the incision for 6 weeks postoperatively. Do not submerge underwater for 6 weeks postoperatively. Continue with MASHA hose/elastic stockings for 2 weeks postoperatively. May remove at nighttime but needs to be placed back on the leg during the day. Do NOT use alcohol with narcotic pain medication. Do NOT make important decisions while taking narcotic medication. If you have problems with taking your medication (rash, itching, nausea, etc.) call the o ffice at once. Follow Up Care Test Results: Test results from this visit will be discussed in further detail at your follow- up appointment, if applicable. Discharge Plan Admission Admit Date/Time: 03/04/23 07:14 Attending Provider: Issac Ley Primary Care Provider: Moises Glover Consulting Providers: Enrique Barahona Discharge Orders/Prescriptions Prescriptions: New acetaminophen 500 mg Tablet 1,000 mg PO TID Qty: 100 0RF Rx Instructions: Do not take more than 3000 mg Tylenol in a 24-hour period. aspirin 81 mg capsule 81 mg PO BID 30 Days Qty: 60 0RF Rx Instructions: Take 81 mg aspirin twice daily for 4 weeks postoperatively for DVT prophylaxis. meloxicam 7.5 mg Tablet 7.5 mg PO BID Qty: 60 0RF Rx Instructions: Do not take any other nonsteroidal anti-inflammatories while using meloxicam/Mobic. famotidine 20 mg Tablet 20 mg PO DAILY Qty: 30 0RF oxycodone 5 mg Tablet 5 - 10 mg PO Q4H PRN PRN (Reason: Pain Score 4-10) 5 Days Qty: 42 0RF sennosides-docusate sodium [Stool Softener-Stimulant Laxat] 8.6-50 mg Tablet 2 tab PO BID 3 Days Qty: 12 0RF Rx Instructions: Take until first bowel movement, then as needed tamsulosin 0.4 mg Capsule 0.4 mg PO DAILY@1730 Qty: 0 0RF Continued multivitamin with folic acid [Thera] 1 TABLET tablet 1 tab PO DAILY Patient Comments: SUPPLEMENT lisinopril [Zestril] 20 MG tablet 20 mg PO QHS hydrochlorothiazide 25 MG tablet 25 mg PO DAILY Other Ambulatory Orders: 12 Lead EKG (Routine) Timeframe: 20230209 Location: None Selected Ordered By: Dr. Issac Ley Referrals / Follow Up: Pretty Rico MD [Med Staff - Active Staff] - Jose Palacios PA-C [Med Staff - Adv Practice Prof] - 03/19/23 3:15 pm Disposition Disposition (needs filled in before D/C Order can be placed): Home, Self Care
--- NOTE | 2023-03-05 11:28 | CASEMGMT ---
Social Work SW met with pt to discuss advance directives.? Pt confirms he has completed a living will and health care POA naming his son Tim Rosa.? Pt notified that documents are not on file at [facility] and SW requested they be brought in for scanning into the EMR.? DAMIAN Wallace
[2023-03-05 11:30] VITALS: BP 121/77; PULSE 71; RESP 16; TEMP 36.9; O2SAT 97
== END 2023-03-05 13:45 | disposition home or self-care (01) ==
LOC: SDC 09:18 → MS3 09:18
PROVIDERS: Anesthesiology; Admitting Provider Specialist; PCP Family Medicine; Referring Provider Specialist; Visit Provider Specialist
PROC: 0SRD0JZ Replacement of Left Knee Joint with Synthetic Substitute, Open Approach (ICD-10-PCS; CPT 27447; principal; 2023-03-04 07:00)
DX: M17.12 Unilateral primary osteoarthritis, left knee (principal); H91.90 Unspecified hearing loss, unspecified ear; I10 Essential (primary) hypertension; Z79.899 Other long term (current) drug therapy; K21.9 Gastro-esophageal reflux disease without esophagitis; G47.30 Sleep apnea, unspecified; R33.8 Other retention of urine
CPT/HCPCS: 27447; S2900; 01402; 64447; 36415; 73560; 80048; 82040; 82962; 83735; 85025; 85027; 87081; 88305; 88311; 93005; 94668; 96361; 96365; 96366; 96375; 97110; 97116; 97162; 97166; 97530; 97535; 99221; 99252; C1776; J7120; A4216; G0378; G0463; J2405; J3475

== ENCOUNTER 2023-03-06 10:18 | Emergency (ER) | payer OTHER, SELFPAY ==
[2023-03-06 10:18] VITALS: BP 181/78
[2023-03-06 10:19] VITALS: PULSE 85; RESP 16; TEMP 36.7; O2SAT 97; BMI 31.4
--- NOTE | 2023-03-06 10:48 | EX.ED.DYSGE1 ---
HPI History of Present Illness Chief Complaint: Abd Pain Informant: patient Onset/Context/Timing Onset: Yesterday Context: Gradual Onset Timing: Continuous Quality: Pressure Location: Suprapubic Worsened by: Sitting up Relieved by: Nothing Narrative Narrative: Patient presents with lower abdominal pain that has been getting worse since last night. Patient describes it as a pressure. Patient had a recent left total knee replacement 2 days ago. Patient was discharged from the hospital yesterday. Patient states he was able to urinate after the surgery. Patient states he has only been urinating small amounts since he has been home. Patient did have an episode of nausea and vomiting last night. Patient denies any diarrhea, melena, or hematochezia. Patient admits to some pressure over his suprapubic area. Patient states it is worse with sitting up. Patient states nothing makes it better. Patient denies any fevers or chills. [facility] Medical History Acute cholecystitis Gastric reflux History of stress test Hypertension Non-smoker Postoperative urinary retention Sleep apnea Wears dentures Wears glasses Wears hearing aid Home Medications multivitamin with folic acid 400 mcg tablet (Thera) 1 tab PO DAILY supplement 04/17/15 [History Last Taken Unknown] hydrochlorothiazide 25 mg tablet 25 mg PO DAILY bp 07/07/18 [History Last Taken 07/26/19] lisinopril 20 mg tablet (Zestril) 20 mg PO QHS bp 07/07/18 [History Last Taken Unknown] acetaminophen 500 mg tablet 1,000 mg (2 x 500 mg) PO TID #100 tabs 03/05/23 [Rx Last Taken Unknown] aspirin 81 mg capsule 81 mg PO BID 30 days #60 caps 03/05/23 [Rx Last Taken Unknown] famotidine 20 mg tablet 20 mg PO DAILY #30 tabs 03/05/23 [Rx Last Taken Unknown] meloxicam 7.5 mg tablet 7.5 mg PO BID #60 tabs 03/05/23 [Rx Last Taken Unknown] oxycodone 5 mg tablet 5 - 10 mg (1 - 2 x 5 mg) PO Q4H PRN PRN Pain Score 4-10 5 days #42 tabs 03/05/23 [Rx Last Taken Unknown] sennosides 8.6 mg-docusate sodium 50 mg tablet (Stool Softener-Stimulant Laxative) 2 tab PO BID 3 days #12 tabs 03/05/23 [Rx Last Taken Unknown] tamsulosin 0.4 mg capsule 0.4 mg PO DAILY@1730 #0 caps 03/05/23 [Rx Last Taken Unknown] Allergy/AdvReac Type Severity Reaction Status Date / Time No Known Allergies Allergy Verified 03/06/23 10:19 Surgical History History of appendectomy History of hernia surgery History of total right knee replacement (TKR) Hx laparoscopic cholecystectomy Social History Smoking Status: Never smoker ROS ROS ED Constitutional Constitutional ED: Denies chills or fever(s) Eyes Eyes: Denies blurry vision or change in vision ENT ENT ED: Denies rhinorrhea or sore throat Cardiovascular Cardiovascular: Denies chest pain or palpitations Respiratory/Chest Respiratory/Chest: Denies cough or dyspnea Gastrointestinal Gastrointestinal: Denies nausea or vomiting Genitourinary Genitourinary ED: Denies dysuria or hematuria Musculoskeletal Musculoskeletal: Denies back pain or neck pain Integumentary Denies abscess or rash Neurologic Neurologic: Denies headache(s) or weakness Allergic/Immunologic Allergic/Immunologic ED: Denies mouth swelling or urticaria EXAM Physical Exam Const Vital Signs: 03/06/23 10:19 03/06/23 10:18 Temperature 98.1 F Temperature Source Temporal Pulse Rate 85 Respiratory Rate 16 Blood Pressure 181/78 H Blood Pressure Mean 112 Pulse Ox 97 Oxygen Delivery Method Room Air Positive well nourished and well developed General Appearance ED: well developed HEENT Reports moist mucous membranes Neck supple and no JVD Resp normal respiratory effort and clear to auscultation bilaterally Cardio regular rate and regular rhythm GI GI Narrative: There is tenderness over the lower abdomen. Bladder is distended. There is no rebound or guarding noted. Bowel sounds normal. Palpation: soft Neuro oriented x3, CN's II-XII intact bilaterally and no sensory deficits noted Sensorium / Orientation: alert Motor Exam: strength 5/5 throughout Psych mental status grossly normal MDM MDM MDM Narrative Medical decision making narrative: Differential diagnosis includes urinary tract infection and urinary retention. Urinalysis will be obtained to assess for urinary tract infection and hematuria. Lab Data Attestation: I reviewed the patient's lab results. Lab results narrative: Urinalysis was reviewed. There is no evidence of urinary tract infection or hematuria. Labs: Laboratory Results - last 24 hr 03/06/23 11:07 Urine Color Yellow Urine Clarity Clear Urine pH 5.0 Ur Specific [place] 1.010 Urine Protein Negative Urine Glucose (UA) Normal Urine Ketones Negative Urine Occult Blood 50 H Urine Nitrite Negative Urine Bilirubin Negative Urine Urobilinogen Normal Ur Leukocyte Esterase Negative Urine RBC 0 SEEN Urine WBC 0 SEEN Ur Squamous Epith Cells 0 SEEN Urine Bacteria 0 SEEN Urine Mucus 0 SEEN Treatment and Re-Evaluation :: Vidal catheter was placed. 1200 cc of urine was returned. Patient is feeling better after this. Patient requested to leave the Vidal catheter in. Patient was given a leg bag. Patient is feeling better on reevaluation. Patient was instructed to follow-up with his primary care physician in 3 days for catheter removal. Patient and family understood and had cellulitis of the plantar. Discharge Plan Triage Chief Complaint: Abd Pain ED Provider: Diego Monreal Dx/Rx/DC Orders Clinical Impression: Acute urinary retention, Status post total left knee replacement Instructions: ED Vidal Catheter, Care, ED Urinary Retention, Male Prescriptions: No Action multivitamin with folic acid [Thera] 1 TABLET tablet 1 tab PO DAILY Patient Comments: SUPPLEMENT lisinopril [Zestril] 20 MG tablet 20 mg PO QHS hydrochlorothiazide 25 MG tablet 25 mg PO DAILY acetaminophen 500 mg Tablet 1,000 mg PO TID Qty: 100 0RF Rx Instructions: Do not take more than 3000 mg Tylenol in a 24-hour period. aspirin 81 mg capsule 81 mg PO BID 30 Days Qty: 60 0RF Rx Instructions: Take 81 mg aspirin twice daily for 4 weeks postoperatively for DVT prophylaxis. meloxicam 7.5 mg Tablet 7.5 mg PO BID Qty: 60 0RF Rx Instructions: Do not take any other nonsteroidal anti-inflammatories while using meloxicam/Mobic. famotidine 20 mg Tablet 20 mg PO DAILY Qty: 30 0RF oxycodone 5 mg Tablet 5 - 10 mg PO Q4H PRN PRN (Reason: Pain Score 4-10) 5 Days Qty: 42 0RF sennosides-docusate sodium [Stool Softener-Stimulant Laxat] 8.6-50 mg Tablet 2 tab PO BID 3 Days Qty: 12 0RF Rx Instructions: Take until first bowel movement, then as needed tamsulosin 0.4 mg Capsule 0.4 mg PO DAILY@1730 Qty: 0 0RF Primary Care Provider: Moises Glover Referrals: Moises Glover MD [Primary Care Provider] - 3-5 Days Disposition Disposition: Home, Self Care
[2023-03-06 11:12] LABS: Bacteria 0 SEEN /hpf (None Seen); Mucous, Urine 0 SEEN /hpf (<or=2+); Red Blood Cells-Urine 0 SEEN /hpf (0-5); Squamous Epithelial Cells - UA 0 SEEN /hpf (0-5); White Blood Cells 0 SEEN /hpf (0-5)
[2023-03-06 11:20] LABS: Color, Urine Yellow (Yellow); Glucose, Dipstick Normal (Normal); Ketone-Dipstick Negative (Negative); Leukocyte Esterase-Dipstick Negative /ul (Negative); Nitrite-Dipstick Negative (Negative); Occult Blood-Urine 50 /ul (Negative); Protein-Dipstick Negative (Negative); Urine Bilirubin Dipstick Negative (Negative); Urine Clarity Clear (Clear); Urine Urobilinogen Normal (Normal)
== END 2023-03-06 12:18 | disposition home or self-care (01) ==
PROVIDERS: Emergency Provider Emergency Medicine; PCP Family Medicine; Visit Provider Emergency Medicine
DX: R10.9 Unspecified abdominal pain (principal); R33.9 Retention of urine, unspecified; I10 Essential (primary) hypertension; Z96.652 Presence of left artificial knee joint; Z79.891 Long term (current) use of opiate analgesic; Z79.82 Long term (current) use of aspirin; K21.9 Gastro-esophageal reflux disease without esophagitis; Z90.49 Acquired absence of other specified parts of digestive tract
CPT/HCPCS: 51702; 81001; 99285

== ENCOUNTER 2023-03-09 14:13 | Emergency (ER) | payer OTHER, SELFPAY ==
[2023-03-09 14:13] VITALS: BP 140/79; PULSE 111; RESP 16; TEMP 36.6; O2SAT 99; BMI 29.9
--- NOTE | 2023-03-09 14:56 | EX.ED.DYSGE1 ---
HPI <MALCOM Alvarez - Last Filed: 03/09/23 17:37> History of Present Illness Chief Complaint: Complaint Narrative Narrative: Patient is a 72-year-old male with history of hypertension, who recently had a left knee replacement March 03, 2023. Patient was seen here on the , secondary to being unable to urinate. He had a Vidal catheter placed, he had 1.5 L out and was sent home with a catheter. Today, the patient states that he took out his own catheter at approximately 6 AM, however he was unaware that he had to deflate the balloon. Patient states he is now having bleeding out of his penis, he continued cannot urinate again. Patient is here for evaluation. PFS <MALCOM Alvarez - Last Filed: 03/09/23 17:37> [facility], [facility] Medical History Acute cholecystitis Gastric reflux History of stress test Hypertension Non-smoker Postoperative urinary retention Sleep apnea Wears dentures Wears glasses Wears hearing aid Home Medications multivitamin with folic acid 400 mcg tablet (Thera) 1 tab PO DAILY supplement 04/17/15 [History Last Taken Unknown] hydrochlorothiazide 25 mg tablet 25 mg PO DAILY bp 07/07/18 [History Last Taken 07/26/19] lisinopril 20 mg tablet (Zestril) 20 mg PO QHS bp 07/07/18 [History Last Taken Unknown] acetaminophen 500 mg tablet 1,000 mg (2 x 500 mg) PO TID #100 tabs 03/05/23 [Rx Last Taken Unknown] aspirin 81 mg capsule 81 mg PO BID 30 days #60 caps 03/05/23 [Rx Last Taken Unknown] famotidine 20 mg tablet 20 mg PO DAILY #30 tabs 03/05/23 [Rx Last Taken Unknown] meloxicam 7.5 mg tablet 7.5 mg PO BID #60 tabs 03/05/23 [Rx Last Taken Unknown] oxycodone 5 mg tablet 5 - 10 mg (1 - 2 x 5 mg) PO Q4H PRN PRN Pain Score 4-10 5 days #42 tabs 03/05/23 [Rx Last Taken Unknown] sennosides 8.6 mg-docusate sodium 50 mg tablet (Stool Softener-Stimulant Laxative) 2 tab PO BID 3 days #12 tabs 03/05/23 [Rx Last Taken Unknown] tamsulosin 0.4 mg capsule 0.4 mg PO DAILY@1730 #0 caps 03/05/23 [Rx Last Taken Unknown] Allergy/AdvReac Type Severity Reaction Status Date / Time No Known Allergies Allergy Verified 03/09/23 14:16 Surgical History History of appendectomy History of hernia surgery History of total right knee replacement (TKR) Hx laparoscopic cholecystectomy Social History Smoking Status: Never smoker ROS <MALCOM Alvarez - Last Filed: 03/09/23 17:37> ROS ED ROS Narrative Constitutional: Negative for fever, chills, weight loss, weakness Eyes: Negative for vision loss, vision change, double vision ENT: Negative for any sore throat, ear pain, congestion Cardiovascular: Negative for any chest pain, tightness, palpitations Respiratory: Negative for any cough, sputum production, hemoptysis, dyspnea, dyspnea on exertion, orthopnea Gastrointestinal: Negative for any abdominal pain, nausea, vomiting, diarrhea, constipation, blood in stool, blood in vomit : Negative for any urinary frequency, dysuria, retention. Blood in urine, blood at the tip of the penis Muscle skeletal: Negative for any muscle joint pain, stiffness, myalgias, arthralgias, neck pain, back pain Neurological: Negative for any headache, syncope, numbness or tingling, dizziness Skin: Negative for any rashes, lumps, itching, abrasions, lacerations Psychiatric: Negative for any depression, anxiety, stress, suicidal ideation, homicidal ideation Hematologic: Negative for any easy bruising, excessive bruising, easy bleeding Allergies: Negative for any eczema, hives, rash EXAM <MALCOM Alvarez - Last Filed: 03/09/23 17:37> Physical Exam Narrative Exam Narrative: Vital signs reviewed. HEET: Head normocephalic atraumatic, TMs clear bilaterally. Posterior pharynx is clear, moist mucous membranes. Nares clear bilaterally. Neck: Supple with no lymphadenopathy or tenderness. No signs of meningismus, negative jolt sign. Cardiac: Regular rate and rhythm no murmurs gallops or rubs, equal peripheral pulses bilaterally. Respiratory: Lungs clear to auscultation bilaterally. No chest tenderness. Abdomen: Soft. No abdominal bruit or pulsatile masses. No hepatosplenomegaly. Patient does have some lower abdominal tenderness Extremities: No peripheral edema, no signs of gross trauma or deformity. Active full range of motion of all extremities. Neuro: Cranial nerves II through XII intact, no focal neurological deficits. Skin: Clean dry and intact with no rash, purpura, petechiae, vesicles or pustules. Backs/flank: No CVA tenderness, no midline spinal tenderness, no deformity. Psych: Normal mood and affect. No SI, HI or acute psychosis. : Patient did have a blood clot to the tip of his penis. There is no deformity. There is no gross hemorrhage or jeanie red bleeding. Const Vital Signs: 03/09/23 14:13 Temperature 98 F Temperature Source Temporal Pulse Rate 111 H Respiratory Rate 16 Blood Pressure 140/79 H Blood Pressure Mean 99 Pulse Ox 99 Oxygen Delivery Method Room Air <Dr. Haider Porter MD - Last Filed: 03/09/23 15:36> Physical Exam Const Vital Signs: 03/09/23 14:13 Temperature 98 F Temperature Source Temporal Pulse Rate 111 H Respiratory Rate 16 Blood Pressure 140/79 H Blood Pressure Mean 99 Pulse Ox 99 Oxygen Delivery Method Room Air MDM <MALCOM Alvarez - Last Filed: 03/09/23 17:37> [facility] Lab Data Labs: Laboratory Results - last 24 hr 03/09/23 15:20 WBC 8.1 RBC 3.53 L Hgb 11.3 L Hct 34.1 L MCV 96.6 H MCH 32.0 MCHC 33.1 RDW Std Deviation 46.6 H RDW Coeff of Narda 13.2 Plt Count 238 MPV 9.5 Immature Gran % (Auto) 0.900 Neut % (Auto) 67.5 Lymph % (Auto) 16.9 L Johnston % (Auto) 13.4 H Eos % (Auto) 1.1 Baso % (Auto) 0.2 Absolute Neuts (auto) 5.4 Absolute Lymphs (auto) 1.36 Nucleated RBC % 0 Sodium 132 L Potassium 3.6 Chloride 103 Carbon Dioxide 26.0 Anion Gap 3 L BUN 19 H Creatinine 1.00 Estim Creat Clear Calc 60.59 Est GFR (MDRD) Af Amer 94 Est GFR (MDRD) Non-Af 78 BUN/Creatinine Ratio 19.0 Glucose 113 H Calcium 9.2 Urine Color Red Urine Clarity Turbid Urine pH 6.5 Ur Specific [place] 1.010 Urine Protein 500 H Urine Glucose (UA) Normal Urine Ketones 15 H Urine Occult Blood 250 H Urine Nitrite Negative Urine Bilirubin Negative Urine Urobilinogen Normal Ur Leukocyte Esterase 25 H Urine RBC > 100 SEEN Urine WBC 0-5 SEEN Ur Squamous Epith Cells 0 SEEN Urine Bacteria 0 SEEN Urine Mucus 0 SEEN Treatment and Re-Evaluation :: Patient appears to be nontoxic, vital signs are stable. Presenting to the emergency department with complaints of penile bleeding secondary to taking out the Vidal cath without deflating the balloon. Patient states he is having difficulty urinating. Differential diagnosis includes UTI, renal sufficiency, soft tissue injury. Patient will have a Vidal catheter placed secondary to the dysuria and urinary retention. Patient had no significant findings on exam. Examination, patient does have light red-colored urine. There were some clots originally however it is much more clear, and is draining without any difficulty. Patient CBC was unremarkable, patient's chemistries showed a normal creatinine, BUN was 19. Patient now has a Vidal catheter placed, patient is in no distress. Secondary to the patient being here for sotalol, he did have more pain to his left knee which is a replacement less than 1 week ago, patient will receive Tylenol. At this time, I do believe the patient is stable for discharge. He is to keep this Vidal catheter in until seeing urology. He verbally understands. At this time, patient stable for discharge. Urinalysis showed no signs of infection, did show positive blood. There is no evidence of any UTI, significant injury to the lower abdomen, urinary tract. Patient stable for discharge. <Dr. Haider Porter MD - Last Filed: 03/09/23 15:36> [facility] Lab Data Labs: Laboratory Results - last 24 hr 03/09/23 15:20 WBC 8.1 RBC 3.53 L Hgb 11.3 L Hct 34.1 L MCV 96.6 H MCH 32.0 MCHC 33.1 RDW Std Deviation 46.6 H RDW Coeff of Narda 13.2 Plt Count 238 MPV 9.5 Immature Gran % (Auto) 0.900 Neut % (Auto) 67.5 Lymph % (Auto) 16.9 L Johnston % (Auto) 13.4 H Eos % (Auto) 1.1 Baso % (Auto) 0.2 Absolute Neuts (auto) 5.4 Absolute Lymphs (auto) 1.36 Nucleated RBC % 0 Sodium 132 L Potassium 3.6 Chloride 103 Carbon Dioxide 26.0 Anion Gap 3 L BUN 19 H Creatinine 1.00 Estim Creat Clear Calc 60.59 Est GFR (MDRD) Af Amer 94 Est GFR (MDRD) Non-Af 78 BUN/Creatinine Ratio 19.0 Glucose 113 H Calcium 9.2 Urine Color Red Urine Clarity Turbid Urine pH 6.5 Ur Specific [place] 1.010 Urine Protein 500 H Urine Glucose (UA) Normal Urine Ketones 15 H Urine Occult Blood 250 H Urine Nitrite Negative Urine Bilirubin Negative Urine Urobilinogen Normal Ur Leukocyte Esterase 25 H Urine RBC > 100 SEEN Urine WBC 0-5 SEEN Ur Squamous Epith Cells 0 SEEN Urine Bacteria 0 SEEN Urine Mucus 0 SEEN Treatment and Re-Evaluation Comments:: I have personally performed a face to face assessment of the patient and have reviewed the KATIE Note. I performed a substantive portion of the visit including all aspects of the following. My rosario findings include: History is self-traumatic removal of Vidal with balloon inflated followed by hematuria and urinary retention. Exam is prepubic tenderness, unable to urinate blood at the meatus. Medical Decison Making Vidal placed by nursing, 18 [place]. Irrigated and removed some clots but no more flow. We will continue to watch for urine flow, if none will irrigate, if issues with clots will replace with a larger 1. Follow-up with urology. Other additions or changes: [None] Discharge Plan Triage Chief Complaint: Complaint ED Midlevel Provider: Nahid Mcintosh ED Provider: Haider Porter Dx/Rx/DC Orders Clinical Impression: Hematuria, Acute urinary retention Instructions: ED Vidal Catheter, Care, ED Hematuria, ED Urinary Retention, Male Prescriptions: No Action multivitamin with folic acid [Thera] 1 TABLET tablet 1 tab PO DAILY Patient Comments: SUPPLEMENT lisinopril [Zestril] 20 MG tablet 20 mg PO QHS hydrochlorothiazide 25 MG tablet 25 mg PO DAILY acetaminophen 500 mg Tablet 1,000 mg PO TID Qty: 100 0RF Rx Instructions: Do not take more than 3000 mg Tylenol in a 24-hour period. aspirin 81 mg capsule 81 mg PO BID 30 Days Qty: 60 0RF Rx Instructions: Take 81 mg aspirin twice daily for 4 weeks postoperatively for DVT prophylaxis. meloxicam 7.5 mg Tablet 7.5 mg PO BID Qty: 60 0RF Rx Instructions: Do not take any other nonsteroidal anti-inflammatories while using meloxicam/Mobic. famotidine 20 mg Tablet 20 mg PO DAILY Qty: 30 0RF oxycodone 5 mg Tablet 5 - 10 mg PO Q4H PRN PRN (Reason: Pain Score 4-10) 5 Days Qty: 42 0RF sennosides-docusate sodium [Stool Softener-Stimulant Laxat] 8.6-50 mg Tablet 2 tab PO BID 3 Days Qty: 12 0RF Rx Instructions: Take until first bowel movement, then as needed tamsulosin 0.4 mg Capsule 0.4 mg PO DAILY@1730 Qty: 0 0RF Primary Care Provider: Moises Glover Referrals: Moises Glover MD [Primary Care Provider] - Phoenix Padilla MD [Med Staff - Active Staff] - Activity Restrictions/Additional Instructions: Please keep the Vidal catheter in until seen by urology. Disposition Disposition: Home, Self Care
[2023-03-09 15:39] LABS: Bacteria 0 SEEN /hpf (None Seen); Mucous, Urine 0 SEEN /hpf (<or=2+); Squamous Epithelial Cells - UA 0 SEEN /hpf (0-5)
[2023-03-09 15:47] LABS: Absolute Lymphocyte Count 1.36 X10^3/uL (0.83-4.51); Absolute Neutrophil Count 5.4 X10^3/uL (2.0-7.7); Basophil# 0.02 X10^3/uL; Basophil% 0.2 % (0-1); Eosinophil# 0.09 X10^3/uL; Eosinophils% 1.1 % (0-5); Hematocrit 34.1 % (40-54); Hemoglobin 11.3 g/dL (13.0-16.5); Lymphocyte # 1.36 X10^3/ul (0.83-4.51); Lymphocyte % 16.9 % (19-41); Mean Corp Hgb Conc 33.1 g/dL (32-36); Mean Corpuscular Volume 96.6 fL (80-94); Mean Platelet Vol. 9.5 fl (6.2-12.0); Monocyte# 1.08 X10^3/uL; Monocyte% 13.4 % (0-10); NRBC Flagged by Analyzer 0 % (0-5); Neutrophil # 5.43 X10^3/uL (2.7-7.7); Neutrophil % 67.5 % (47-70); Platelet Count 238 K/mm3 (150-450); RBC Distribution Width CV 13.2 % (11.6-14.6); RBC Distribution Width SD 46.6 fl (35.1-43.9); Red Blood Count 3.53 M/mm3 (4.6-6.2); White Blood Count 8.1 K/mm3 (4.4-11.0)
[2023-03-09 16:09] LABS: Anion Gap 3 (5-15); BUN 19 mg/dL (7-18); Calcium,Total 9.2 mg/dL (8.5-10.1); Chloride 103 mmol/L (98-107); EST Glomerular Filtration Rate 78 mL/min (>60); Est Glom Filt Rate - Afr Amer 94 mL/min (>60); Estimated Creatinine Clearance 60.59 ml/min; Glucose 113 mg/dL (74-106); Potassium 3.6 mmol/L (3.5-5.1); Sodium Level 132 mmol/L (136-145)
[2023-03-09 16:12] LABS: Color, Urine Red (Yellow); Glucose, Dipstick Normal (Normal); Ketone-Dipstick 15 mg/dl (Negative); Leukocyte Esterase-Dipstick 25 /ul (Negative); Nitrite-Dipstick Negative (Negative); Occult Blood-Urine 250 /ul (Negative); Protein-Dipstick 500 mg/dl (Negative); Urine Bilirubin Dipstick Negative (Negative); Urine Clarity Turbid (Clear); Urine Urobilinogen Normal (Normal); Urine pH 6.5 (5.0 - 8.0)
[2023-03-09 16:54] LABS: Red Blood Cells-Urine > 100 SEEN /hpf (0-5); White Blood Cells 0-5 SEEN /hpf (0-5)
[2023-03-09] MEDS: Acetaminophen 500 MG Tablet 1000 MG PO (17:07)
[2023-03-09 17:52] VITALS: BP 118/87; PULSE 89; RESP 16; O2SAT 98
== END 2023-03-09 17:53 | disposition home or self-care (01) ==
PROVIDERS: Nurse Practitioner; Emergency Provider Emergency Medicine; PCP Family Medicine; Visit Provider Emergency Medicine
DX: R31.9 Hematuria, unspecified (principal); I10 Essential (primary) hypertension; R33.9 Retention of urine, unspecified; Z96.652 Presence of left artificial knee joint; Z79.899 Other long term (current) drug therapy; Z79.82 Long term (current) use of aspirin; K21.9 Gastro-esophageal reflux disease without esophagitis; Z90.49 Acquired absence of other specified parts of digestive tract
CPT/HCPCS: 51702; 80048; 81001; 85025; 99282; J7030; A4216

== ENCOUNTER 2023-03-17 19:15 | Emergency (ER) | payer OTHER, SELFPAY ==
[2023-03-17 19:16] VITALS: BP 131/87; PULSE 68; RESP 14; TEMP 36.8; O2SAT 95; BMI 29.6
--- NOTE | 2023-03-17 19:43 | EDS_ITS ---
HPI History of Present Illness Chief Complaint: Vidal C/O Informant: patient and family Narrative Narrative: Patient has had an indwelling Vidal catheter for the past 8 days postop after right knee replacement, due to urinary retention was she has a history of after surgeries. He is scheduled to see urology 2 days from now to see about getting it out, started having hematuria today, followed by discontinuation of urine output and feeling like his bladder is full and would not empty. Takes baby aspirin every day no other antiplatelet or anticoagulant medications. Denies any other acute symptoms. [facility] Medical History Acute cholecystitis Gastric reflux History of stress test Hypertension Non-smoker Postoperative urinary retention Sleep apnea Wears dentures Wears glasses Wears hearing aid Home Medications multivitamin with folic acid 400 mcg tablet (Thera) 1 tab PO DAILY supplement 04/17/15 [History Last Taken Unknown] hydrochlorothiazide 25 mg tablet 25 mg PO DAILY bp 07/07/18 [History Last Taken 07/26/19] lisinopril 20 mg tablet (Zestril) 20 mg PO QHS bp 07/07/18 [History Last Taken Unknown] acetaminophen 500 mg tablet 1,000 mg (2 x 500 mg) PO TID #100 tabs 03/05/23 [Rx Last Taken Unknown] aspirin 81 mg capsule 81 mg PO BID 30 days #60 caps 03/05/23 [Rx Last Taken Unknown] famotidine 20 mg tablet 20 mg PO DAILY #30 tabs 03/05/23 [Rx Last Taken Unknown] meloxicam 7.5 mg tablet 7.5 mg PO BID #60 tabs 03/05/23 [Rx Last Taken Unknown] oxycodone 5 mg tablet 5 - 10 mg (1 - 2 x 5 mg) PO Q4H PRN PRN Pain Score 4-10 5 days #42 tabs 03/05/23 [Rx Last Taken Unknown] sennosides 8.6 mg-docusate sodium 50 mg tablet (Stool Softener-Stimulant Laxative) 2 tab PO BID 3 days #12 tabs 03/05/23 [Rx Last Taken Unknown] tamsulosin 0.4 mg capsule 0.4 mg PO DAILY@1730 #0 caps 03/05/23 [Rx Last Taken Unknown] Allergy/AdvReac Type Severity Reaction Status Date / Time No Known Allergies Allergy Verified 03/17/23 19:21 Surgical History History of appendectomy History of hernia surgery History of total right knee replacement (TKR) Hx laparoscopic cholecystectomy Social History Smoking Status: Never smoker ROS ROS ED Constitutional Constitutional ED: Denies chills or fever(s) Eyes Eyes: Denies change in vision or diplopia ENT ENT ED: Denies rhinorrhea or sore throat Cardiovascular Cardiovascular: Denies chest pain or palpitations Respiratory/Chest Respiratory/Chest: Denies cough or dyspnea Gastrointestinal Gastrointestinal: Reports abdominal pain; Denies diarrhea, nausea or vomiting Genitourinary Genitourinary ED: Reports as per HPI and hematuria; Denies dysuria Musculoskeletal Musculoskeletal: Reports back pain and other Details: postop R knee pain ; Denies neck pain Integumentary Denies abscess or rash Neurologic Neurologic: Denies headache(s), paresthesias or weakness Psychiatric Psychiatric: Denies anxiety or suicidal thoughts EXAM Physical Exam Const Vital Signs: 03/17/23 19:16 Temperature 98.2 F Temperature Source Temporal Pulse Rate 68 Respiratory Rate 14 Blood Pressure 131/87 H Blood Pressure Mean 101 Pulse Ox 95 Oxygen Delivery Method Room Air Positive well nourished and well developed General Appearance ED: well developed and NAD HEENT Reports moist mucous membranes normocephalic and atraumatic Eyes PERRL and EOMs intact bilaterally Neck full ROM and supple Resp normal respiratory effort and clear to auscultation bilaterally Cardio regular rate, regular rhythm and no murmurs GI non-distended GI Narrative: Suprapubic tenderness and fullness. Otherwise benign abdomen. Auscultation: normoactive bowel sounds Palpation: soft no CVA tenderness Narrative: 18 [place] catheter within the penis, no leakage around the catheter, signs of scant blood within the catheter no active flow. Back/Spine no CVA tenderness General Back: other FROM Extremity normal to inspection Extremity Narrative: Limited range of motion right knee due to recent operation General Extremety ED: Negative for edema, pulses abnormal or tenderness General Extremity: Negative for edema or pulses abnormal Neuro oriented x3, CN's II-XII intact bilaterally and no sensory deficits noted Sensorium / Orientation: awake and alert Motor Exam: strength 5/5 throughout Skin no rashes or lesions noted and no wounds MDM MDM MDM Narrative Medical decision making narrative: Nursing irrigated the catheter, quite a bit of blood clots came out, was then flowing, he had 600 out, the patient felt much better, but still bloody. I had nursing irrigate some more, it then irrigated more clots out, and there was no more bleeding, there was transparent yellow urine out. This occurred for the next 30 minutes without any recurrent bleeding and the patient felt well. Given this, we will send for a culture to rule out infection, and allow the patient to go home and follow-up with urology as scheduled day after tomorrow. They are comfortable with that plan. Discharge Plan Triage Chief Complaint: Vidal C/O ED Provider: Haider Porter Dx/Rx/DC Orders Clinical Impression: Hematuria, Acute urinary retention Instructions: ED Vidal Catheter, Care, ED Hematuria, ED Urinary Retention, Male Prescriptions: No Action multivitamin with folic acid [Thera] 1 TABLET tablet 1 tab PO DAILY Patient Comments: SUPPLEMENT lisinopril [Zestril] 20 MG tablet 20 mg PO QHS hydrochlorothiazide 25 MG tablet 25 mg PO DAILY acetaminophen 500 mg Tablet 1,000 mg PO TID Qty: 100 0RF Rx Instructions: Do not take more than 3000 mg Tylenol in a 24-hour period. aspirin 81 mg capsule 81 mg PO BID 30 Days Qty: 60 0RF Rx Instructions: Take 81 mg aspirin twice daily for 4 weeks postoperatively for DVT prophylaxis. meloxicam 7.5 mg Tablet 7.5 mg PO BID Qty: 60 0RF Rx Instructions: Do not take any other nonsteroidal anti-inflammatories while using meloxicam/Mobic. famotidine 20 mg Tablet 20 mg PO DAILY Qty: 30 0RF oxycodone 5 mg Tablet 5 - 10 mg PO Q4H PRN PRN (Reason: Pain Score 4-10) 5 Days Qty: 42 0RF sennosides-docusate sodium [Stool Softener-Stimulant Laxat] 8.6-50 mg Tablet 2 tab PO BID 3 Days Qty: 12 0RF Rx Instructions: Take until first bowel movement, then as needed tamsulosin 0.4 mg Capsule 0.4 mg PO DAILY@1730 Qty: 0 0RF Primary Care Provider: Moises Glover Referrals: Urologist, your [Other] - Keep Janina appointment Moises Glover MD [Primary Care Provider] - Disposition Disposition: Home, Self Care
[2023-03-17 21:11] VITALS: BP 130/68; PULSE 71; RESP 16; O2SAT 98
== END 2023-03-17 21:12 | disposition home or self-care (01) ==
PROVIDERS: Emergency Provider Emergency Medicine; PCP Family Medicine; Visit Provider Emergency Medicine
DX: R31.9 Hematuria, unspecified (principal); I10 Essential (primary) hypertension; Z96.651 Presence of right artificial knee joint; Z79.82 Long term (current) use of aspirin; K21.9 Gastro-esophageal reflux disease without esophagitis; Z79.899 Other long term (current) drug therapy; Z90.49 Acquired absence of other specified parts of digestive tract; R33.9 Retention of urine, unspecified
CPT/HCPCS: 87077; 87086; 87088; 87186; 99284

== ENCOUNTER → 2023-04-16 | Outpatient (CLI) | payer OTHER, SELFPAY | END | disposition home or self-care (01) | LOC: LABSPEC 15:59 | PROVIDERS: PCP Family Medicine; Referring Provider Urology; Visit Provider Urology | DX: R30.0 Dysuria (principal) | CPT/HCPCS: 87077; 87086; 87088; 87186 ==

== ENCOUNTER → 2024-07-11 | Outpatient (CLI) | payer OTHER, SELFPAY | END | disposition home or self-care (01) | LOC: LAB 09:51 | PROVIDERS: PCP Internal Medicine; Referring Provider Urology; Visit Provider Urology | DX: N40.1 Benign prostatic hyperplasia with lower urinary tract symptoms (principal) | CPT/HCPCS: 36415; 84153 ==

== ENCOUNTER 2024-07-19 07:58 | Day surgery (SDC) | payer SELFPAY, OTHER ==
[2024-07-19] VITALS (7 sets, daily range): BP systolic 88–106; BP diastolic 61–74; PULSE 62–96; RESP 16; TEMP 36.6–36.8; O2SAT 95–99; BMI 29.1
--- NOTE | 2024-07-19 | GASB_PTH ---
PATIENT: LANRE WATSON LOC: EN U#:[id number] AGE/SX: 74/M ROOM: RE07/19/[address]: Dr. Issac Kapoor MD : [id number] BED: DIS: 07/19/2024 SPEC #: [id number] RECD: 07/19/24 12:31 STATUS: LILIANA ELIZABETH #: [id number] TRIXIE: 07/19/24 00:[address]: Issac Kapoor DEPT: SURGICAL PATHOLOGY RECD BY: Yeison Cowan ENTERED: 07/19/24 12:32 SP TYPE: Gastric Bx OTHR DR: Dr. Pretty Rico MD Tissues: A - Gastric mucous membrane B - Gastric mucous membrane C - Ascending colon D - Sigmoid colon biopsy Procedures: Immunohistochemical Stains Surgery Specimen Level IV HEADER OPERATION: Colonoscopy with polypectomy and biopsy, EGD with biopsy PRE-OP DIAGNOSIS: Family history of colon cancer, acid reflux TISSUE SUBMITTED: A- Antrum biopsy, B- Gastroesophageal junction biopsy, C- Ascending polyp, D- Sigmoid biopsy MICROSCOPIC DIAGNOSIS A: STOMACH, ANTRUM, BIOPSY: * Chronic gastritis with features of reactive gastropathy. * IHC is negative for H pylori organisms. B: GASTROESOPHAGEAL JUNCTION, BIOPSY: * Squamous mucosa with mild reactive changes. * Columnar mucosa negative for goblet cell metaplasia. C: ASCENDING COLON POLYP, BIOPSY: * Sessile serrated lesion. D: SIGMOID COLON POLYP, BIOPSY: * Tubular adenoma. MICROSCOPIC DESCRIPTION Slides are reviewed. These tests were developed and their performance characteristics determined by [facility]. They may not have been cleared or approved by the U.S. Food and Drug Administration. The FDA has determined that such clearance or approval is not necessary. The above immunohistochemical/dualISH markers are ordered and reviewed by the Pathologist. GROSS DESCRIPTION A. Received in fixative is one container labeled with the patient's name and designated Antrum biopsy. The specimen consists of two irregular fragments of light marshall soft tissue that in aggregate measure 1.3 x 0.2 x 0.2 cm. The specimen is totally submitted in one cassette. B. Received in fixative is one container labeled with the patient's name and designated GE junction biopsy. The specimen consists of multiple irregular fragments of light marshall soft tissue that in aggregate measure 1.2 x 0.3 x 0.2 cm. The specimen is totally submitted in one cassette. C. Received in fixative is one container labeled with the patient's name and designated Ascending polyp. The specimen consists of multiple irregular fragments of light marshall soft tissue that in aggregate measure 1.7 x 0.2 x 0.1 cm. The specimen is totally submitted in one cassette. D. Received in fixative is one container labeled with the patient's name and designated Sigmoid biopsy. The specimen consists of two irregular fragments of light marshall soft tissue that in aggregate measure 0.9 x 0.3 x 0.2 cm. The specimen is totally submitted in one cassette. 07/19/2024 CPT:[id number]
--- NOTE | 2024-07-19 08:55 | PRE.ANES_ITS ---
ASA Classification* ASA Classification ASA Classification: 2 Assessment & Plan Anesthesia* Anesthesia Assessment Anesthesia Assessment: Discussed sedation and/or anesthesia options, risks, benefits, and alternatives with patient/parents/legal guardian/POA. Questions invited. The patient/parents/legal guardian/POA seems to understand and agrees to proceed with anesthesia plan. Reviewed the physical assessment, medical history, allergy history and patient home medications list prior to surgery/procedure/anesthetic and documented any changes. Performed airway and anesthesia risk assessments. Anesthesia Type Anesthesia Type: General History Source History Obtained from:: Patient Anesthesia Focused Assessment* Temperature: 98.2 F Pulse Rate: 78 Blood Pressure: 104/74 Respiratory Rate: 16 Pulse Ox: 99 Oxygen Delivery Method: Room Air Airway Assessment Mouth opens: >3 cm Mallampati Score: II Teeth Condition: Dentures (upper/lower) Neck Range of motion (ROM): Full ROM Focused Labs Anesthesia Preop lab: CBC WBC 8.1 K/mm3 (4.4-11.0) 03/09/23 15:20 03/09/23 RBC 3.53 M/mm3 (4.6-6.2) L 03/09/23 15:20 03/09/23 Hgb 11.3 g/dL (13.0-16.5) L 03/09/23 15:20 3 Hct 34.1 % (40-54) L 03/09/23 15:20 03/09/23 Plt Count 238 K/mm3 (150-450) 03/09/23 15:20 03/09/23 CHEMISTRY Potassium 3.6 mmol/L (3.5-5.1) 03/09/23 15:20 03/09/23 Sodium 132 mmol/L (136-145) L 03/09/23 15:20 03/09/23 Magnesium 2.2 mg/dL (1.6-2.6) 02/09/23 08:59 02/09/23 BUN 19 mg/dL (7-18) H 03/09/23 15:20 03/09/23 Creatinine 1.00 mg/dL (0.70-1.30) 03/09/23 15:20 03/09/23 Glucose 113 mg/dL (74-106) H 03/09/23 15:20 03/09/23 POC Glucose 117 mg/dL (74-106) H 03/04/23 06:14 03/04/23 COAG Pre-Assessment Diagnosis/Proposed Procedure Planned Operative Procedure(s): EGD/CSCOPE Anesthesia History Anesthesia History - timing inspector: Anesthesia History - timing inspector Hx Hospitalization No 07/18/24 10:54 Any Problems With Anesthesia No 07/18/24 10:54 Cholinesterase deficiency No 07/18/24 10:54 You/Your Family Experience No 07/18/24 10:54 fever (hyperthermia) with Relationship Recent Exposure to Contagious No 07/19/24 08:38 Disease Does patient have nerve No 07/18/24 10:54 stimulator Patient instructed to have device shut off --Does patient have Pacemaker No 07/19/24 08:38 or ICD? When Was Last Pacemaker Check QUESTION #4 FULL TEXT: You/Your Family Experience fever (hyperthermia) with Anesthesia Any additional information?: No Last Oral Intake Last Oral intake: Last Oral Intake NPO since 00:00 07/19/24 08:38 Meds taken in AM with sips of water? Meds patient instructed to take am of surgery Any additional information?: No PONV PONV - timing inspector: PONV - timing inspector Female No 07/18/24 10:54 HX of Motion Sickness No 07/18/24 10:54 HX of N/V After Surgery No 07/18/24 10:54 Non-Smoker Yes 07/18/24 10:54 Duration of Surgery greater No 07/18/24 10:54 than 60 minutes Number of Risk Factors 1 07/18/24 10:54 PONV Score Low Risk 07/18/24 10:54 Any additional information?: No Height & Weight Height & Weight: Anesthesia: Height & Weight Height 5 ft 8 in 07/19/24 08:38 Weight: 87 kg 07/19/24 08:38 Body Mass Index (BMI) 29.1 07/19/24 08:38 Respiratory Assessment Respiratory Assessment - timing inspector: Respiratory Tract Infection Hx - timing inspector Hx Respiratory Tract Infection No 07/18/24 10:54 STOP Sleep Apnea STOP Sleep Apnea - timing inspector: STOP Sleep Apnea - timing inspector Hx Hypertension Yes: CONTROLLED WITH MEDS 07/18/24 10:54 Hx Sleep Apnea No 07/18/24 10:54 CPAP No 03/04/23 09:03 BIPAP No 02/06/23 08:09 Do you snore loudly (louder Yes 07/18/24 10:54 than talking or can be heard Do you often feel tired/ No 07/18/24 10:54 fatigued/ sleepy during daytime? Has anyone observed you stop Yes 07/18/24 10:54 breathing during sleep? STOP Results Positive 07/18/24 10:54 QUESTION #5 FULL TEXT : Do you snore loudly (louder than talking or can be heard through closed doors)? Any additional information?: No Tobacco Use History Tobacco Use History - timing inspector: Tobacco Use History - timing inspector Tobacco Use Smoking Status Never smoker 07/18/24 10:54 Hx Tobacco Use No 07/18/24 10:54 Years Smoking Packs Smoked per Day Smoking Cessation Date was within the last 15 years Hx Smoking Cessation Date Hx Smoking Cessation Counseling Any additional information?: No Hematologic Medial History Hematologic Hx - timing inspector: Hematologic Medical Hx - manager baby Hx of Blood Transfusion No 07/18/24 10:54 Hx of Transfusion in last 3 No 07/18/24 10:54 Months Date of Last Transfusion (if within last 3 months) Ever experience any problems No 07/18/24 10:54 with transfusion(s)? Specify any problems Hx of Preganancy in last 3 N/A 07/18/24 10:54 Months Nurse Filling Out Transfusion DSCHRIBER 07/18/24 10:54 & Questions: Date: 07/18/24 07/18/24 10:54 Time: 10:57 07/18/24 10:54 Patient unable to answer at this time (ie. confused, unrespo Any additional information?: No /Reproduction History /Reproductive History - timing inspector: /Reproductive Hx- timing inspector Hx Now No 07/18/24 10:54 Gestational Age (in weeks): EDC: Hx Hx Para Hx Section SAB No 07/18/24 10:54 Any additional information?: No PFSH Medical History Arthritis Migraine headache Gastric reflux History of pain when walking Family history of colon cancer Acid reflux Abdominal pain Wears hearing aid Wears glasses Wears dentures Postoperative urinary retention Non-smoker History of stress test Acute calculous cholecystitis Hypertension Family history of malignant neoplasm of colon in first degree relative diagnosed when younger than 60 years of age Personal history of colonic polyps Home Medications ?Medication ?Instructions ?Recorded ?Last Taken ?Type hydrochlorothiazide 25 mg tablet 25 mg PO DAILY bp #30 tabs 07/01/24 07/18/24 Rx lisinopril 40 mg tablet 40 mg PO QHS bp #90 tabs 08/0207/18/24 Rx Allergy/AdvReac Type Severity Reaction Status Date / Time No Known Allergies Allergy Verified 07/19/24 08:34 Family History Father Colon cancer Surgical History Hx of total knee arthroplasty History of total right knee replacement (TKR) History of hernia surgery Hx laparoscopic cholecystectomy History of appendectomy Social History household members: spouse current occupational status: retired 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 Physical Exam Const alert, oriented x3 and average body habitus Resp normal respiratory effort, normal air movement and clear to auscultation bilaterally Cardio regular rate, regular rhythm, no murmurs and diaphoretic
--- NOTE | 2024-07-19 10:10 | PCM.HP.STD ---
HPI - General General Date of Admission: 07/19/24 Date of Service: 07/19/24 Chief Complaint: egd/ colonoscopy HPI Narrative The patient is a 74-year-old male who is in need of a screening colonoscopy. His last colonoscopy was about 5 years ago. He does have a personal history of polyps. He also has a family history of colon cancer as well. He denies any lower GI issues or problems to speak of. He does admit to some occasional heartburn symptoms and as a result he does inquire about upper scope as well. [facility] Medical History Arthritis Migraine headache Gastric reflux History of pain when walking Family history of colon cancer Acid reflux Abdominal pain Wears hearing aid Wears glasses Wears dentures Postoperative urinary retention Non-smoker History of stress test Acute calculous cholecystitis Hypertension Family history of malignant neoplasm of colon in first degree relative diagnosed when younger than 60 years of age Personal history of colonic polyps Home Medications ?Medication ?Instructions ?Recorded ?Last Taken ?Type hydrochlorothiazide 25 mg tablet 25 mg PO DAILY bp #30 tabs 07/01/24 07/18/24 Rx lisinopril 40 mg tablet 40 mg PO QHS bp #90 tabs 07/11/24 07/18/24 Rx Allergy/AdvReac Type Severity Reaction Status Date / Time No Known Allergies Allergy Verified 07/19/24 08:34 Family History Father Colon cancer Surgical History Hx of total knee arthroplasty History of total right knee replacement (TKR) History of hernia surgery Hx laparoscopic cholecystectomy History of appendectomy Social History household members: spouse 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 Smoking Status: Never smoker Electronic Cigarette Use: not used alcohol intake: never substance use type: does not use what type of physical activity do you participate in: walking do you feel safe at home: Yes Vital Signs Vital Signs Vital Signs: 07/19/24 08:38 07/19/24 08:38 07/19/24 08:59 Temperature 98.2 F 98.2 F Temperature Source Temporal Pulse Rate 78 78 Respiratory Rate 16 16 Respiratory Pattern Normal Blood Pressure 104/74 104/74 Blood Pressure Mean 84 Blood Pressure Source Monitor Blood Pressure Position Semi-Fowlers Blood Pressure Location Left Arm Pulse Ox 99 99 Oxygen Delivery Method Room Air Room Air Weight Weight: 191 lb 12.835 oz Body Mass Index (BMI) 29.1 Physical Exam Const alert, oriented x3 and no apparent distress Assessment & Plan Assessment/Plan (1) Family history of colon cancer: (2) Acid reflux: PLAN: Patient is a 74-year-old male in need of a screening colonoscopy and EGD. We discussed the details of the planned procedure and he wishes to proceed. This procedure will begin shortly Charges/Coding Visit Charges Inpatient E&M: 43462 Init Hosp L1
--- NOTE | 2024-07-19 11:08 | PCM.POST.ANE ---
Anesthesia: Postop Eval I Current Vital Signs Temperature: 98 F Pulse Rate: 72 Blood Pressure: 106/65 Respiratory Rate: 16 Pulse Ox: 96 Oxygen Delivery Method: Room Air Assessment Airway patent: Yes Spontaneous unlabored respirations: Yes Mental status: Asleep nausea: No Vomiting: No Anesthesia Complication: No Fluid Hydration Crystalloid volume administer (ml): 75 Total IV fluid infused: 75 Progress Note Anesthesia document: Postop Eval 1 completed: Yes
--- NOTE | 2024-07-19 11:09 | OP.EGD_ITS ---
Patient Name: Junior Rosa Procedure Date: 07/19/2024 10:04 AM Date of : 1950 Age: 74 Procedure: Upper GI endoscopy Indications: Heartburn Providers: Issac Kapoor MD Medicines: Monitored Anesthesia Care Patient Profile: Refer to note in patient chart for documentation of history and physical. Patient has symptoms. Complications: No immediate complications. Estimated blood loss: Minimal. Procedure: Pre-Anesthesia Assessment: - Prior to the procedure, a History and Physical was performed, and patient medications and allergies were reviewed. The patient's tolerance of previous anesthesia was also reviewed. The risks and benefits of the procedure and the sedation options and risks were discussed with the patient. All questions were answered, and informed consent was obtained. Prior Anticoagulants: The patient has taken no anticoagulant or antiplatelet agents. ASA Grade Assessment: II - A patient with mild systemic disease. After reviewing the risks and benefits, the patient was deemed in satisfactory condition to undergo the procedure. After obtaining informed consent, the endoscope was passed under direct vision. Throughout the procedure, the patient's blood pressure, pulse, and oxygen saturations were monitored continuously. The gastroscope was introduced through the mouth, and advanced to the duodenal bulb. The upper GI endoscopy was accomplished without difficulty. The patient tolerated the procedure well. Moderate Sedation: See the other procedure note for documentation of moderate sedation with intraservice time. Scope In: 10:22:52 AM Scope Out: 10:30:30 AM Total Procedure Duration Time 0 hours 7 minutes 38 seconds Findings: The duodenal bulb was normal. A small hiatal hernia was present. Localized mildly erythematous mucosa without bleeding was found in the gastric antrum and in the stomach. Biopsies were taken with a cold forceps for Helicobacter pylori testing. No gross lesions were noted in the entire esophagus. Mucosa was biopsied with a cold forceps for histology randomly at the gastroesophageal junction. Verification of patient identification for the specimen was done by the nurse using the patient's name, date and medical record number. Impression: - Normal duodenal bulb. - Small hiatal hernia. - Erythematous mucosa in the antrum and stomach. Biopsied. - No gross lesions in the entire esophagus. Biopsied. Recommendation: - Discharge patient to home (ambulatory). - High fiber diet. - Await pathology results. - Continue present medications. Procedure Code(s): --- Professional --- 73446, Esophagogastroduodenoscopy, flexible, transoral; with biopsy, single or multiple Diagnosis Code(s): --- Professional --- K44.9, Diaphragmatic hernia without obstruction or gangrene R12, Heartburn K31.89, Other diseases of stomach and duodenum CPT copyright 2021 [employer]. All rights reserved. The codes documented in this report are preliminary and upon smasher review may be revised to meet current compliance requirements. Issac Kapoor MD 07/19/2024 11:08:27 AM This report has been signed electronically. Number of Addenda: 0 Note Initiated On: 07/19/2024 10:04 AM
--- NOTE | 2024-07-19 11:09 | OP.CCLET_ITS ---
07/19/2024 Pretty Rico Md Re : Upper GI endoscopy procedure for Junior Rosa Dear Jacky This procedure was performed on Friday, July 19, 2024. My impressions and recommendations are as follows: Impressions : - Normal duodenal bulb. - Small hiatal hernia. - Erythematous mucosa in the antrum and stomach. Biopsied. - No gross lesions in the entire esophagus. Biopsied. Recommendations : - Discharge patient to home (ambulatory). - High fiber diet. - Await pathology results. - Continue present medications. My findings are described in the full procedure note, which is enclosed. If I can be of further assistance, please feel free to contact me at . Sincerely, Issac Kapoor MD 07/19/2024 11:08:27 AM This report has been signed electronically.
--- NOTE | 2024-07-19 11:13 | OP.CCLET_ITS ---
07/19/2024 Pretty Rico Md Re : Colonoscopy procedure for Junior Rosa Dear Jacky This procedure was performed on Friday, July 19, 2024. My impressions and recommendations are as follows: Impressions : - Diverticulosis in the sigmoid colon. - One 5 mm polyp in the ascending colon, removed using lift and cut and a hot snare. Resected and retrieved. - Two 2 to 4 mm polyps in the sigmoid colon, removed with a cold biopsy forceps. Resected and retrieved. - Non-bleeding internal hemorrhoids. - The examination was otherwise normal on direct and retroflexion views. Recommendations : - Discharge patient to home. - High fiber diet. - Await pathology results. - Repeat colonoscopy in 5 years for surveillance. - Return to my office PRN. - Continue present medications. My findings are described in the full procedure note, which is enclosed. If I can be of further assistance, please feel free to contact me at . Sincerely, Issac Kapoor MD 07/19/2024 11:13:06 AM This report has been signed electronically.
--- NOTE | 2024-07-19 11:13 | OP.COLON_ITS ---
Patient Name: Junior Rosa Procedure Date: 07/19/2024 10:32 AM Date of : 1950 Age: 74 Procedure: Colonoscopy Indications: Screening for colorectal malignant neoplasm Providers: Issac Kapoor MD Medicines: Monitored Anesthesia Care Patient Profile: Refer to note in patient chart for documentation of history and physical. Patient has symptoms. Refer to note in patient chart for documentation of history and physical. Last Colonoscopy: none. The patient's first colonoscopy is today. Complications: No immediate complications. Estimated blood loss: Minimal. Procedure: Pre-Anesthesia Assessment: - Prior to the procedure, a History and Physical was performed, and patient medications and allergies were reviewed. The patient's tolerance of previous anesthesia was also reviewed. The risks and benefits of the procedure and the sedation options and risks were discussed with the patient. All questions were answered, and informed consent was obtained. Prior Anticoagulants: The patient has taken no anticoagulant or antiplatelet agents. ASA Grade Assessment: II - A patient with mild systemic disease. After reviewing the risks and benefits, the patient was deemed in satisfactory condition to undergo the procedure. - Prior to the procedure, a History and Physical was performed, and patient medications and allergies were reviewed. The patient's tolerance of previous anesthesia was also reviewed. The risks and benefits of the procedure and the sedation options and risks were discussed with the patient. All questions were answered, and informed consent was obtained. Prior Anticoagulants: The patient has taken no anticoagulant or antiplatelet agents. ASA Grade Assessment: II - A patient with mild systemic disease. After reviewing the risks and benefits, the patient was deemed in satisfactory condition to undergo the procedure. After I obtained informed consent, the scope was passed under direct vision. Throughout the procedure, the patient's blood pressure, pulse, and oxygen saturations were monitored continuously. The adult colonoscope was introduced through the anus and advanced to the cecum, identified by appendiceal orifice and ileocecal valve. The ileocecal valve, appendiceal orifice, and rectum were photographed. The entire colon was visualized. The colonoscopy was performed without difficulty. The patient tolerated the procedure well. The quality of the bowel preparation was adequate. Moderate Sedation: See the other procedure note for documentation of moderate sedation with intraservice time. Scope In: 10:33:17 AM Scope Withdrawal Time 0 hours 16 minutes 29 seconds Scope Out: 10:57:54 AM Total Procedure Duration Time 0 hours 24 minutes 37 seconds Findings: The perianal and digital rectal examinations were normal. Many small-mouthed diverticula were found in the sigmoid colon. A 5 mm polyp was found in the ascending colon. The polyp was sessile. The polyp was removed with a lift and cut technique using a hot snare. Resection and retrieval were complete. Verification of patient identification for the specimen was done by the nurse using the patient's name, date and medical record number. Estimated blood loss was minimal. Two semi-sessile polyps were found in the sigmoid colon. The polyps were 2 to 4 mm in size. These polyps were removed with a cold biopsy forceps. Resection and retrieval were complete. Verification of patient identification for the specimen was done by the nurse using the patient's name, date and medical record number. Estimated blood loss was minimal. Non-bleeding internal hemorrhoids were found during retroflexion. The hemorrhoids were medium-sized. The exam was otherwise without abnormality on direct and retroflexion views. Impression: - Diverticulosis in the sigmoid colon. - One 5 mm polyp in the ascending colon, removed using lift and cut and a hot snare. Resected and retrieved. - Two 2 to 4 mm polyps in the sigmoid colon, removed with a cold biopsy forceps. Resected and retrieved. - Non-bleeding internal hemorrhoids. - The examination was otherwise normal on direct and retroflexion views. Recommendation: - Discharge patient to home. - High fiber diet. - Await pathology results. - Repeat colonoscopy in 5 years for surveillance. - Return to my office PRN. - Continue present medications. Procedure Code(s): --- Professional --- 46037, Colonoscopy, flexible; with removal of tumor(s), polyp(s), or other lesion(s) by snare technique 74569, 59, Colonoscopy, flexible; with biopsy, single or multiple Diagnosis Code(s): --- Professional --- Z12.11, Encounter for screening for malignant neoplasm of colon K64.8, Other hemorrhoids D12.2, Benign neoplasm of ascending colon K57.30, Diverticulosis of large intestine without perforation or abscess without bleeding D12.5, Benign neoplasm of sigmoid colon CPT copyright 2021 [employer]. All rights reserved. The codes documented in this report are preliminary and upon gaming floor supervisor review may be revised to meet current compliance requirements. Issac Kapoor MD 07/19/2024 11:13:06 AM This report has been signed electronically. Number of Addenda: 0 Note Initiated On: 07/19/2024 10:32 AM
--- NOTE | 2024-07-19 12:35 | PCM.POSTANE2 ---
Anesthesia Postop Eval I Sum Postop Eval Completion status Anesthesia document: Postop Eval 1 completed: Yes Anesthesia Postop Eval I Summary Anesthesia Postop Eval I Summary: Anesthesia Postop Eval I: Assessment Summary Airway patent Yes 07/19/24 11:10 [email or web address] Spontaneous unlabored Yes 07/19/24 11:10 [email or web address] respirations Mental status Asleep 07/19/24 11:10 [email or web address] nausea No 07/19/24 11:10 [email or web address] Vomiting No 07/19/24 11:10 [email or web address] Anesthesia Postop Eval I: Fluid Summary Crystalloid volume administer 75 07/19/24 11:10 [email or web address] (ml) Colloids volume administered ( ml) Blood Product volume administered (ml) Total IV fluid infused 75 07/19/24 11:10 [email or web address] Anesthesia Postop Eval I: Summary Notes Anesthesia Complication No 07/19/24 11:10 [email or web address] Anesthesia Complication Comment: Post-operative progress note Anesthesia: Postop Eval II Evaluation Mental status: Awake Pain Level: 0 nausea: No Vomiting: No Complications Anesthesia Complication: No
== END 2024-07-19 11:38 | disposition home or self-care (01) ==
LOC: EN 08:00 → AC 08:02
PROVIDERS: PCP Internal Medicine; Referring Provider Internal Medicine; Visit Provider Surgery
PROC: 0DJD8ZZ Inspection of Lower Intestinal Tract, Via Natural or Artificial Opening Endoscopic (ICD-10-PCS; CPT 45378; principal; 2024-07-19 09:40)
DX: Z12.11 Encounter for screening for malignant neoplasm of colon (principal); K44.9 Diaphragmatic hernia without obstruction or gangrene; Z80.0 Family history of malignant neoplasm of digestive organs; I10 Essential (primary) hypertension; K64.8 Other hemorrhoids; K21.9 Gastro-esophageal reflux disease without esophagitis; K57.30 Diverticulosis of large intestine without perforation or abscess without bleeding; Z86.0100 Personal history of colon polyps, unspecified; Z79.899 Other long term (current) drug therapy; Z96.651 Presence of right artificial knee joint; Z90.49 Acquired absence of other specified parts of digestive tract; K31.89 Other diseases of stomach and duodenum; K63.5 Polyp of colon; K29.50 Unspecified chronic gastritis without bleeding
CPT/HCPCS: 45385; 45380; 43239; 88305; 88342; A4216; J2405

== ENCOUNTER → 2024-07-29 | Outpatient (CLI) | payer OTHER, SELFPAY ==
[2024-07-29 08:39] LABS: Absolute Lymphocyte Count 2.17 X10^3/uL (0.83-4.51); Absolute Neutrophil Count 2.5 X10^3/uL (2.0-7.7); Basophil# 0.03 X10^3/uL; Basophil% 0.5 % (0-1); Eosinophil# 0.33 X10^3/uL; Eosinophils% 5.8 % (0-5); Hematocrit 40.6 % (40-54); Hemoglobin 13.3 g/dL (13.0-16.5); Lymphocyte # 2.17 X10^3/ul (0.83-4.51); Lymphocyte % 38.3 % (19-41); Mean Corp Hgb Conc 32.8 g/dL (32-36); Mean Corpuscular Hgb 32.4 pg (27.0-32.0); Mean Corpuscular Volume 98.8 fL (80-94); Mean Platelet Vol. 10.1 fl (6.2-12.0); Monocyte# 0.65 X10^3/uL; Monocyte% 11.5 % (0-10); NRBC Flagged by Analyzer 0 % (0-5); Neutrophil # 2.47 X10^3/uL (2.7-7.7); Neutrophil % 43.5 % (47-70); Platelet Count 226 K/mm3 (150-450); RBC Distribution Width CV 13.2 % (11.6-14.6); RBC Distribution Width SD 47.2 fl (35.1-43.9); Red Blood Count 4.11 M/mm3 (4.6-6.2); White Blood Count 5.7 K/mm3 (4.4-11.0)
[2024-07-29 09:14] LABS: ALB/GLOB Ratio 1.4 RATIO (0.9-2.4); AST(SGOT) 24 U/L (<=37); Alanine Aminotransfer ALT/SGPT 28 U/L (<=46); Albumin, Serum 4.2 g/dL (3.4-4.8); Alkaline Phosphatase 66 U/L (40-129); Anion Gap 10 (5-15); BUN 18 mg/dL (4-19); Calcium,Total 9.6 mg/dL (7.6-11.0); Carbon Dioxide 26.2 mmol/L (21.0-32.0); Chloride 104 mmol/L (98-108); Cholesterol 197 mg/dL (<=200); Creatinine, Serum 0.93 mg/dL (0.70-1.20); EST Glomerular Filtration Rate 85 (>60); Glucose 98 mg/dL (70-99); High Density Lipoprotein 51 mg/dL; Low Density Lipoprotein Calc. 132 mg/dL; Potassium 4.1 mmol/L (3.3-5.1); Protein, Total 7.2 g/dL (5.9-8.4); Sodium Level 140 mmol/L (133-145); Total Bilirubin 0.81 mg/dL (0.00-1.30); Triglycerides 72 mg/dL; Very Low Density Lipoprotein 14 mg/dL (5-40); cholesterol:hdl ratio screen 3.88
[2024-07-29 09:19] LABS: Hemoglobin A1c 5.2 % (<=5.6)
== END | disposition home or self-care (01) ==
LOC: LAB 08:06
PROVIDERS: PCP Internal Medicine; Referring Provider Internal Medicine; Visit Provider Internal Medicine
DX: I95.1 Orthostatic hypotension (principal); I10 Essential (primary) hypertension
CPT/HCPCS: 36415; 80053; 80061; 83036; 85025